=== PATIENT | male | born 1960 | race Caucasian/White ===

== ENCOUNTER 2022-08-06 11:26 | Outpatient (CLI) | payer BC, SELFPAY ==
[2022-08-06 18:12] LABS: Albumin* 4.7 g/dL (3.3-5.0); Chloride* 100 mmol/L (96-114)
[2022-08-06 18:13] LABS: Potassium* 4.5 mmol/L (3.6-5.1); Sodium* 141 mmol/L (135-149)
[2022-08-06 18:15] LABS: Aspartate Amino Transferase* 58 U/L (12-35); Bilirubin Total* 0.9 mg/dL (0.1-1.5); Blood Urea Nitrogen* 16 mg/dL (7-30); Carbon Dioxide* 30 mmol/L (20-32); Cholesterol* 211 mg/dL (90-199); Creatinine* 0.6 mg/dL (0.5-1.5); Estimated Glomerular Filt Rate 109 ml/min; Glucose* 104 mg/dL (60-115); Total Protein* 9.3 g/dL (6.0-8.3)
[2022-08-06 18:16] LABS: Alanine Aminotransferase* 74 U/L (4-50); Alkaline Phosphatase* 99 U/L (40-150); HDL Cholesterol* 72 mg/dL (>=40); LDL Cholesterol Calculated 128 mg/dL (<100); Triglycerides* 55 mg/dL (40-149)
[2022-08-06 18:43] LABS: PSA Screen* 0.65 ng/mL (0.10-4.00)
== END 2022-08-06 11:27 | disposition home or self-care (01) ==
PROVIDERS: PCP Family Medicine; Visit Provider Family Medicine
DX: E78.5 Hyperlipidemia, unspecified (principal); L97.509 Non-pressure chronic ulcer of other part of unspecified foot with unspecified severity; L03.90 Cellulitis, unspecified; R73.01 Impaired fasting glucose; Z12.5 Encounter for screening for malignant neoplasm of prostate
CPT/HCPCS: 80053; 80061; 84153

== ENCOUNTER 2022-08-13 12:57 | Outpatient (CLI) | payer BC, SELFPAY | END 2022-08-13 12:58 | disposition home or self-care (01) | PROVIDERS: PCP Family Medicine; Visit Provider Nurse Practitioner Family | DX: M14.671 Charcot's joint, right ankle and foot (principal); L97.515 Non-pressure chronic ulcer of other part of right foot with muscle involvement without evidence of necrosis; G60.3 Idiopathic progressive neuropathy; B35.1 Tinea unguium; L60.3 Nail dystrophy | CPT/HCPCS: 11043; 11721; 11730; 11732; 87070; 87186; 99213 ==

== ENCOUNTER 2022-08-20 13:56 | Outpatient (CLI) | payer BC, SELFPAY ==
--- NOTE | 2022-08-20 13:00 | CRLHL7_ITS ---
For Patients: As a result of the Cures Act, medical imaging exams and procedure reports are released immediately into your electronic medical record. You may view this report before your referring provider. If you have questions, please contact your health care provider. Indication: Ulcer Technique: views Comparison: None Findings: Soft tissue swelling and complex soft tissue ulcer noted. Ossified densities are located within the dorsal soft tissues which appear to represent bone fragments. Associated destructive changes of the distal tuft are suggested on the oblique view. Mild degenerative changes. Slight flexion deformity at the IP joint. Impression: Extensive cellulitis of the right great toe with multifocal soft tissue ulcers particularly at the dorsal aspect. Multiple osseous fragments are present dorsally and there appears to be destructive changes at the distal tuft suggesting osteomyelitis. Dictated by Rom Foley MD @ 08/21/2022 8:24:48 AM (Electronically Signed)
== END 2022-08-20 13:57 | disposition home or self-care (01) ==
LOC: RAD 13:56
PROVIDERS: PCP Family Medicine; Visit Provider Nurse Practitioner Family
DX: L03.031 Cellulitis of right toe (principal)
CPT/HCPCS: 11043; 73660

== ENCOUNTER 2022-08-27 14:44 | Outpatient (CLI) | payer BC, SELFPAY ==
--- OUTSIDE RECORDS SUMMARY | 2022-08-27 14:45 | XMS_ITS | Clinical Summary ---
:1960 Author Organization [employer] [facility] [employer] [place] [address] Care Team Providers Name Role Phone Nonstaff, Doctor Primary Care Provider Unavailable Allergies Active Allergy Reactions Severity Noted Date Comments Aspirin, Buffered 04/01/2010 Ibuprofen Angioedema 12/13/2018 Patient thinks he possibly had li p swelling to ibu profen when he was you ng so now avoids it. Indomethacin Other - Describe In 08/26/2022 Facial s welling per Comment Field patient - swel ling around lips and eyes Medications Medication Sig Dispensed Refills Start Date End Date Status acetaminophen Take 2 tablets by 0 12/15/2018 Active (TYLENOL) 325 mg mouth every 4 hours tablet if needed (For mild pain.). Max acetaminophen dose: 4000mg in 24 hrs. simvastatin (ZOCOR) 0 08/06/2022 Active 20 mg tablet doxycycline 0 08/21/2022 Active monohydrate (MONODOX) 100 mg capsule acetic acid 0.25% 0 08/25/2022 A ctive 0.25 % irrigation cephalexin (KEFLEX) 0 08/06/2022 Active 500 mg capsule Active Problems Problem Noted Date SVT (supraventricular tachycardia) 12/19/2018 T12 compression fracture 12/13/2018 Back pain 12/13/2018 History of alcohol abuse 12/13/2018 Encounters Date Type Specialty Care Team Description 08/27/2022 Telephone Suman Arvizu Results R, DPM 08/26/2022 Nurse/Clinic Staff Testing ( Pre-procedure Only COVID test) 08/26/2022 Office Visit Suman Arvizu Consult (R ight great toe R DPM osteomyelitis) 08/26/2022 Travel from Last 3 Months Immunizations Name Administration Dates Next Due Influenza, IIV4 12/14/2018 Influenza, IIV4 (=>6mos) MDV 09/12/2014 Tdap 02/09/2014 Family History Medical History Relation Name Comments Diabetes Father Diabetes Maternal Grandmother Relation Name Status Comments Father Maternal Grandmother Social History Tobacco Use Types Packs/Day Years Used Date Never Smoker Smokeless Tobacco: Never Used Alcohol Use Standard Drinks/Week Comments Yes 1 (1 standard drink = 0.6 oz pure alcoho l) 1x per week Alcohol Habits Answer Date Recorded How often do you have a drink containing alcohol? Not asked How many drinks containing alcohol do you have on a Not aske d typical day when you are drinking? How often do you have six or more drinks on one occasion? No t asked Comment: 1x per week 12/14/2018 Sex Assigned at Date Recorded Not on file COVID-19 Exposure Response Date Recorded In the last 10 days, have you been in contact No / Unsure 08/26/2022 10:53 AM CDT with someone who was confirmed or suspected to have Coronavirus/COVID-19? Obstetrics History Last Filed Vital Signs Vital Sign Reading Time Taken Comments Blood Pressure 142/91 08/26/2022 11:[address] ates AM CDT his bp has been elevated since t he infection. Pulse 76 08/26/2022 11:17 AM CDT Temperature 36.6 ??C (97.9 ??F) 12/22/2018 10:39 AM STUDENT SERVICES COUNSELOR Respiratory Rate 16 12/22/2018 10:39 AM STUDENT SERVICES COUNSELOR Oxygen Saturation 98% 08/26/2022 11:17 AM CDT Inhaled Oxygen - - Concentration Weight 85.5 kg (188 lb 9.6 08/26/2022 11:17 oz) AM CDT Height 188 cm (6' 2) 12/22/2018 10:39 AM STUDENT SERVICES COUNSELOR Body Mass Index 24.21 12/22/2018 10:39 AM STUDENT SERVICES COUNSELOR Plan of Treatment Upcoming Encounters Date Type Specialty Care Team Description 08/31/2022 Hospital Encounter Suman Arvizu DPM [address] [place], [place] [address] (Wo rk) 08/31/2022 Surgery Suman Arvizu R, partial AMPUTATION DPM right great TOE [address] [facility], [place] [address] (Wo rk) 09/02/2022 Office Visit Suman Arvizu R, DPM [address] [facility], [place] [address] (Wo rk) 09/16/2022 Office Visit Suman Arvizu R, DPM [address] [facility], [place] [address] (Wo rk) 09/23/2022 Office Visit Suman Arvizu, DPM [address] [facility], [place] [address] (Wo rk) Scheduled Procedures Name Priority Associated Diagnoses Date/Time AMPUTATION TOE Tier 4 Osteomyelitis of great toe of ri ght 08/31/2022 10:27 AM CDT foot (HC) Health Maintenance Due Date Last Done Comments Depression screening for age 12+ 1971 Hepatitis C screening for age 18-79 1977 Colonoscopy through age 75 2004 Lipids for age 45-75 2004 Zoster (shingles) series for age 50+ 2009 (1 of 2) BMI (ht and wt on same day) for age 0212/22/2019 12/22/2018 18+ COVID-19 vaccine series (4 - Booster 12/16/2021 10/21/2021, 04/01/2021, for Moderna series) 03/04/2021 Influenza for age 50-64 07/09/2022 12/14/2018, 09/12/2014 Tetanus booster 02/10/2024 02/09/2014 Tdap Completed 02/09/2014 Procedures Procedure Name Priority Date/Time Associated Comments Diagnosis COVID 19 COLLECTION Routine 08/26/2022 3:32 PM Encounter for R esults for this CDT pre-operative procedure are in laboratory testing the resul ts section. from Last 3 Months Results COVID 19 COLLECTION (08/26/2022 3:32 PM CDT) [facility] gist Method Time Signature TESTING [employer] 08/27/2022 [facility] Laboratory 6:38 AM CDT LABORATORY-[facility] Comment: Specimen submitted to [facility] for testing. Specimen Anatomical Location / Collection Method Collection Froilan e Received Time (Source) Laterality / Volume Other SPECIMEN FROM Non-Blood / 08/26/2022 3:32 08/26/2022 3:43 NASOPHARYNGEAL Unknown PM CDT PM CDT STRUCTURE / Unknown Suman Arvizu DPMaricruz SEND OUTS Performing Organization Address City/State/ZIP Code Phon e Number [facility] [address] [place] [address] LABORATORY-[facility] LABORATORY from Last 3 Months Insurance Payer Benefit Plan / Subscriber ID Effective Dates Phone Addre ss Type Group [employer] [place] [employer] [id number] 2018-Present [address] [address] [place] [address] Advance Directives Latest Code Status on File Code Status Date Activated Date Inactivated Comments Full Code 12/13/2018 7:04 PM 12/19/2018 11:23 PM Care Teams Chief Engineering Division Relationship Specialty Start Date End Date Nonstaff, Doctor PCP - General 12/13/18 NON STAFF DOCTOR
== END 2022-08-27 14:45 | disposition home or self-care (01) ==
LOC: WOUND 14:44
PROVIDERS: PCP Family Medicine; Visit Provider Nurse Practitioner Family
DX: M86.271 Subacute osteomyelitis, right ankle and foot (principal); M14.671 Charcot's joint, right ankle and foot; L97.515 Non-pressure chronic ulcer of other part of right foot with muscle involvement without evidence of necrosis; G60.3 Idiopathic progressive neuropathy; L84 Corns and callosities
CPT/HCPCS: 11055; 99213

== ENCOUNTER 2023-06-23 09:37 | Outpatient (CLI) | payer BC, SELFPAY ==
[2023-06-23 13:50] LABS: Uric Acid* 7.9 mg/dL (2.2-8.4)
== END 2023-06-23 09:38 | disposition home or self-care (01) ==
PROVIDERS: PCP Family Medicine; Visit Provider Family Medicine
DX: M79.671 Pain in right foot (principal); M79.672 Pain in left foot; E78.5 Hyperlipidemia, unspecified
CPT/HCPCS: 80053; 84550; 85025; 86140

== ENCOUNTER 2023-07-09 12:36 | Outpatient (CLI) | payer BC, SELFPAY | END 2023-07-09 12:37 | disposition home or self-care (01) | LOC: AMB 07-12 10:26 | PROVIDERS: PCP Family Medicine; Visit Provider Family Medicine | DX: F10.129 Alcohol abuse with intoxication, unspecified (principal) | CPT/HCPCS: A0425; A0429 ==

== ENCOUNTER 2023-07-09 13:00 | Emergency (ER) | payer BC, SELFPAY ==
[2023-07-09] VITALS (33 sets, daily range): BP systolic 93–138; BP diastolic 68–105; PULSE 83–121; RESP 16–22; TEMP 36.9; O2SAT 91–100; BMI 24.4
[2023-07-09 14:31] LABS: Basophils Percent Auto 1.3 % (0.0-3.0); Eosinophils Percent Auto 1.8 % (0.0-7.0); Hematocrit 37.6 % (37.0-53.0); Hemoglobin* 12.3 gm/dL (13.5-17.5); Immature Granulocytes Pct Auto 1.3 %; Lymphocytes Percent Auto 23.1 % (20-44); Mean Corpuscular HGB Conc 33 gm/dL (32-36); Mean Corpuscular Hemoglobin 32 pg (26-34); Mean Corpuscular Volume 99 fL (80-100); Monocytes Percent Auto 4.5 % (0.0-11.0); Platelet Count* 342 K/uL (140-440); White Blood Count* 4.45 K/uL (4.50-11.00)
[2023-07-09 14:32] LABS: Lactate* 2.2 mmol/L (0.5-1.9)
[2023-07-09 14:34] LABS: Slide Review Reflex No
[2023-07-09 14:52] LABS: Magnesium* 1.8 mg/dL (1.5-2.6)
[2023-07-09] MEDS: 0.9 % SODIUM CHLORIDE 1000 ml 1,000 ML IV (14:54)
[2023-07-09] MEDS: THIAMINE 100 MG TABLET PO (14:54)
[2023-07-09] MEDS: FOLIC ACID 1 MG TABLET PO (14:54)
[2023-07-09 15:04] LABS: Albumin* 4.1 g/dL (3.3-5.0); Chloride* 102 mmol/L (96-114); Potassium* 4.3 mmol/L (3.6-5.1); Sodium* 142 mmol/L (135-149)
[2023-07-09 15:07] LABS: Alkaline Phosphatase* 74 U/L (40-150); Anion Gap 10 mEq/L (7-15); Aspartate Amino Transferase* 22 U/L (12-35); Bilirubin Total* 0.4 mg/dL (0.1-1.5); Blood Urea Nitrogen* 13 mg/dL (7-30); Carbon Dioxide* 30 mmol/L (20-32); Creatinine* 0.7 mg/dL (0.5-1.5); Est. Creatinine Clearance* 87.91; Estimated Glomerular Filt Rate 104 ml/min; Total Protein* 8.2 g/dL (6.0-8.3)
[2023-07-09 15:08] LABS: Alanine Aminotransferase* 24 U/L (4-50); Calcium* 8.9 mg/dL (8.4-10.6); Glucose* 92 mg/dL (60-115)
[2023-07-09 15:16] LABS: C Reactive Protein* < 0.5 mg/dL (0.5-1.0)
[2023-07-09 15:17] LABS: Ethanol* 0.34 % (0.01-0.03)
--- NOTE | 2023-07-09 16:04 | ED_ITS ---
HPI - General Adult General Date Seen: 07/09/23 Chief complaint: Alcohol/Intoxication Stated complaint: Fall Time Seen by Provider: 07/09/23 13:19 History of Present Illness HPI narrative: Pleasant 62-year-old male brought to the ER today by EMS. He has a past medical history that includes alcohol abuse, peripheral neuropathy, hyperlipidemia, and previous osteomyelitis (reports that he had an amputation of the distal phalanges of his right great toe last August), with recent cellulitis of his right index toe. Patient reports that he developed redness and swelling of the right index to a few weeks ago and he was put on at 21 door course of antibiotics. He says that the toe was fairly red and swollen previously but has been getting better over the past few days. He has not had any fevers or chills. A last night he was feeling well. He went to the [employer] for football game with his brothers. He did have a few drinks before the game and a few drinks during the game. He got up this morning. It was the 1st of the month any apparently receives his pension distribution. He apparently went to the local ED [facility] to withdraw some maxwell. He had a couple of drinks, at least 1 bloody Allyson and possibly a beer tracer (or more, unclear). He then decided that he would go play pickleball. He says he knows he should walk or play pickleball because of his right toe, but he wanted do that anyway. He was walking home and apparently walking up a hill when he got dizzy and fell down. He says he thinks it was just ?windy. ? He did not have any chest pain, shortness of breath, palpitations. No headache. No abdominal pain. No nausea or vomiting. A passing pedestrian saw him and called 911. Related Data Home Medications Medication Instructions Recorded Confirmed diphenhydramine HCl 25 mg capsule 25 mg PO QHS PRN 09/30/22 07/09/23 (Benadryl) Previous Rx's Medication Instructions Recorded atorvastatin 20 mg tablet 20 mg PO QPM #90 tabs 08/27/22 peg 3350-electrolytes 236 240 ml PO Q10M #4,000 mL 08/27/22 gram-22.74 gram-6.74 gram-5.86 gram solution (Golytely) levofloxacin 500 mg tablet 500 mg PO QDAY 21 days #21 tabs 08/16/23 Allergies Allergy/AdvReac Type Severity Reaction Status Date / Time aspirin Allergy Intermediate swelling Verified 07/09/23 13:14 indomethacin Allergy Mild Unknown Verified 07/09/23 13:14 [facility] Medical History (Updated 07/09/23 @ 18:36 by Greg Damico MD) Alcohol abuse ?F10.10 - Alcohol abuse, uncomplicated (ICD-10) Bilateral foot pain ?M79.671 - Pain in right foot (ICD-10) ?M79.672 - Pain in left foot (ICD-10) Peripheral neuropathy ?G62.9 - Polyneuropathy, unspecified (ICD-10) Osteomyelitis ?M86.9 - Osteomyelitis, unspecified (ICD-10) Hyperlipidemia ?E78.5 - Hyperlipidemia, unspecified (ICD-10) Seasonal allergic rhinitis ?J30.2 - Other seasonal allergic rhinitis (ICD-10) Hyperkeratosis of sole ?L85.9 - Epidermal thickening, unspecified (ICD-10) Compression fracture of twelfth thoracic vertebra ?S22.080A - Wedge compression fracture of T11-T12 vertebra, initial encounter for closed fracture (ICD-10) Surgical History (Updated 06/27/23 @ 21:52 by Rom Lanza MD) History of amputation of great toe ?Z89.419 - Acquired absence of unspecified great toe (ICD-10) History of right inguinal hernia repair ?Z98.890 - Other specified postprocedural states (ICD-10) ?Z87.19 - Personal history of other diseases of the digestive system (ICD-10) History of umbilical hernia repair ?Z98.890 - Other specified postprocedural states (ICD-10) ?Z87.19 - Personal history of other diseases of the digestive system (ICD-10) Family History (Updated 08/04/22 @ 17:26 by Lori Garcia) Other Diabetes Social History Smoking Status: Never smoker Do you use any of these nicotine containing products: None Second hand tobacco smoke exposure: No How often do you have a drink containing alcohol: 4 or more times a week How many standard drinks containing alcohol do you have on a typical day: 3 or 4 AUDIT-C Alcohol total score: 5 Non-prescribed substance use: denies use Little interest or pleasure in doing things: not at all Feeling down, depressed, or hopeless: not at all service: No Exam Narrative: Exam Narrative: Constitutional: Appears well-developed and well-nourished. Alert. Conversant but slurred speech. Somewhat tangential historian. Speaks as is if he is intoxicated. Overall Non toxic. HENT: Head: Atraumatic. Nose: Nose normal. Mouth/Throat: Oral mucosa is clear and moist. no trismus. Pharynx normal. Tonsils symmetric. No tonsillar enlargement, erythema, or exudate. Eyes: Conjunctivae normal. EOM normal. Pupils equal, round, and reactive to light. No scleral icterus. Neck: Normal range of motion. Neck supple. No tracheal deviation present. Cardiovascular: Normal rate, regular rhythm. No gallop. No friction rub. No murmur heard. Symmetric radial artery pulses Pulmonary/Chest: Effort normal. No stridor. No respiratory distress. No wheezes. No rales. No rhonchi . No tenderness. Abdominal: Soft. Bowel sounds normal. No distension. No mass. No tenderness. No rebound. No guarding. Musculoskeletal: RUE: Normal range of motion. No tenderness. No deformity LUE: Normal range of motion. No tenderness. No deformity RLE: Wearing a walking boot on his right foot. Removed for exam. He is status post amputation of the distal phalange of the great toe. That toe looks good today. No redness or swelling. He does have some erythema of the skin of his 2nd toe on the right foot but no fluctuance, purulent drainage, crepitus. No signs of maceration in the web spaces or gangrene. The size of his index toe is symmetric with his left foot. Other toes are normal. Forefoot, midfoot, hindfoot are normal. Normal range of motion. No edema. No tenderness. No deformity LLE: Normal range of motion. No edema. No tenderness. No deformity Lymph: No cervical adenopathy. Neurological: Alert and oriented to person, place, and time. Normal strength. CN II-VII intact. No acute sensory deficit. He has some chronic numbness and pain in both of his lower extremities from the knee down to the toes because of peripheral neuropathy. GCS eye subscore is 4. GCS verbal subscore is 5. GCS motor subscore is 6. Normal coordination Skin: Skin is warm and dry. No rash noted. No pallor. Normal capillary refill. Psychiatric: Normal mood. Normal affect. Const: Vital Signs, click to edit/add: Vital Signs - 24 hr 07/09/23 13:08 07/09/23 13:34 07/09/23 13:35 Temperature 98.4 F Pulse Rate 119 H 118 H Pulse Rate [Pulse Oximeter] 121 H Respiratory Rate 16 Blood Pressure 93/68 Blood Pressure [Ri ght Upper Arm] 124/89 Pulse Oximetry 91 96 [facility] 07/09/23 14:00 07/09/23 14:02 07/09/23 14:30 Temperature Pulse Rate 117 H 109 H 110 H Pulse Rate [Pulse Oximeter] Respiratory Rate Blood Pressure 122/91 H Blood Pressure [Ri ght Upper Arm] Pulse Oximetry 95 94 [facility] 07/09/23 14:31 07/09/23 14:32 07/09/23 15:00 Temperature Pulse Rate 109 H 108 H 106 H Pulse Rate [Pulse Oximeter] Respiratory Rate Blood Pressure 126/100 H Blood Pressure [Ri ght Upper Arm] Pulse Oximetry 99 97 [facility] 07/09/23 15:01 07/09/23 15:30 07/09/23 15:31 Temperature Pulse Rate 107 H 87 93 Pulse Rate [Pulse Oximeter] Respiratory Rate Blood Pressure 129/93 H 116/83 Blood Pressure [Ri ght Upper Arm] Pulse Oximetry 96 93 [facility] 07/09/23 15:32 07/09/23 16:00 07/09/23 16:01 Temperature Pulse Rate 113 H 93 85 Pulse Rate [Pulse Oximeter] Respiratory Rate Blood Pressure 117/87 Blood Pressure [Ri ght Upper Arm] Pulse Oximetry 97 96 [facility] 07/09/23 16:30 07/09/23 16:31 07/09/23 17:00 Temperature Pulse Rate 93 91 117 H Pulse Rate [Pulse Oximeter] Respiratory Rate 22 Blood Pressure 125/92 H Blood Pressure [Ri ght Upper Arm] Pulse Oximetry 95 96 [facility] 07/09/23 17:01 07/09/23 17:02 07/09/23 17:30 Temperature Pulse Rate 112 H 119 H 94 Pulse Rate [Pulse Oximeter] Respiratory Rate 22 Blood Pressure 138/103 H Blood Pressure [Ri ght Upper Arm] Pulse Oximetry 97 94 96 Oxygen Delivery Me [facility]od 07/09/23 17:31 07/09/23 17:32 07/09/23 18:00 Temperature Pulse Rate 90 89 83 Pulse Rate [Pulse Oximeter] Respiratory Rate 20 Blood Pressure 136/96 H Blood Pressure [Ri ght Upper Arm] Pulse Oximetry 94 94 93 Oxygen Delivery [facility] 07/09/23 18:01 07/09/23 18:30 07/09/23 18:32 Temperature Pulse Rate 98 84 92 Pulse Rate [Pulse Oximeter] Respiratory Rate Blood Pressure 121/88 124/85 Blood Pressure [Ri ght Upper Arm] Pulse Oximetry 94 94 95 Oxygen Delivery [facility] 07/09/23 19:00 07/09/23 19:02 07/09/23 19:03 Temperature Pulse Rate 86 99 98 Pulse Rate [Pulse Oximeter] Respiratory Rate Blood Pressure 134/92 H Blood Pressure [Ri ght Upper Arm] Pulse Oximetry 96 98 98 Oxygen Delivery Me [facility]od Course Course Hospital Course: Recheck-old doing well. Tolerating sips of liquid. Initial lactic acid elevated at 2.2. Recheck-doing well. Completed IV fluid bolus. Repeat lactic down to 2.1. Has had a cup of water. Breath watching TV. Conversant. Still showing signs of intoxication, but speech is less slurred than when he arrived. Discussed the possible alcohol abuse with the patient. He is still somewhat minimizing his pattern of consumption. He is not interested in treatment at this time but would be accepting at least for a list of outpatient resources. Recheck-he was able to contact his brother, Froilan, who will come here to pick him up, possibly around 8:00 p.m. Recheck -830. Brother has arrived. Patient is comfortable discharging home with his brother. Vital Signs Vital signs: Initial Vital Signs Temperature 98.4 F 07/09/23 13:08 Temperature Source Temporal Artery Scan 07/09/23 13:08 Pulse Rate 121 H 07/09/23 13:08 Pulse Rhythm Regular 07/09/23 13:08 Pulse Strength 3+ Normal 07/09/23 13:08 Respiratory Rate 16 07/09/23 13:08 Blood Pressure 124/89 07/09/23 13:08 Blood Pressure Mean 100 07/09/23 13:08 Blood Pressure Position Sitting 07/09/23 13:08 Pulse Oximetry 91 07/09/23 13:08 Oxygen Delivery Method Room Air 07/09/23 13:08 Vital Signs Temperature 98.4 F 07/09/23 13:08 Pulse Rate 121 H 07/09/23 13:08 Respiratory Rate 16 07/09/23 13:08 Blood Pressure 124/89 07/09/23 13:08 Pulse Oximetry 91 07/09/23 13:08 Oxygen Delivery Method Room Air 07/09/23 13:08 Temperature 98.4 F 07/09/23 13:08 Pulse Rate 98 07/09/23 19:03 Respiratory Rate 20 07/09/23 18:00 Blood Pressure 134/92 H 07/09/23 19:02 Pulse Oximetry 98 07/09/23 19:03 Oxygen Delivery Method Room Air 07/09/23 13:08 Medical Decision Making MDM Narrative Medical decision making narrative: This is a pleasant 62-year-old gentleman brought to the ER today by EMS after he was apparently found or seen on the sidewalk to be stumbling and falling over. Initial differential was quite broad including cardiac pathologies such as arrhythmia or syncope, acute coronary syndrome as well as dehydration, possible infection or sepsis, bleeding, among other causes of dizziness. It turns out the patient's dizziness is probably related to alcohol overconsumption and associated dehydration. Is initially when the patient presented to the ER, he was minimizing his alcohol consumption. He said that he had had ?2 drinks? last night of ago for Game and 1 bloody Allyson this morning. Alcohol level was level was 0.34. Later during his ER course, when I confronted him with his alcohol level is on he added that he actually had been drinking heavily prior to the game, drink heavily during the game, and then was drinking until 3 or 4:00 a.m. this morning. He then had more than 1 bloody Allyson at the [place] this morning for he decided to walk home. I asked him if he felt like his drinking was a problem. He was minimizing that. I asked him if he would be interested in treatment he says he is not at that he would at least except information about alcohol treatment resources. It sounds like he has had a bad relationship lately and has been drinking heavier related to that. He indicates that he feels that this was an unusual exception of alcohol consumption due to the [place] ago for again last night. Transaminases are normal. Bilirubin normal. Kidney function normal. Electrolytes well balanced. blood sugar 92. He does have previous history of osteomyelitis affecting his right great toe with previous partial amputation. He has been on antibiotics recently for a cellulitis affecting his right foot. On my exam he does not have any obvious swelling or signs of osteomyelitis in the toe. He was initially mildly red but after he has been here in the ER even that redness has subsided and his toes symmetric. He presented with sinus tachycardia. Stable blood pressure. We did lab workup to look for possible infection. White blood cell count and differential are reassuring. CRP normal. Lactic acid was initially minimally elevated at 2.2. It is improved to 2.1 after a L of IV fluids. Correspondingly heart rate has come down from 115 down to 100-105. He is tolerating p.o. liquid and will continue to rehydrate orally. I suspect that the elevated lactic acid was likely due to dehydration, not due to infection/sepsis. Lab Data Labs: Lab Results 07/09/23 07/09/23 07/09/23 Range/Units 14:22 16:10 16:23 WBC 4.45 L (4.50-11.00) K/uL RBC 3.80 L (4.30-5.90) m/uL Hgb 12.3 L (13.5-17.5) gm/dL Hct 37.6 (37.0-53.0) % MCV 99 (80-100) fL MCH 32 (26-34) pg MCHC 33 (32-36) gm/dL RDW Coeff of Guerita 13.0 (11.5-15.5) % Plt Count 342 (140-440) K/uL Neut % (Auto) 68.0 (42.0-72.0) % Lymph % (Auto) 23.1 (20-44) % [place] % (Auto) 4.5 (0.0-11.0) % Eos % (Auto) 1.8 (0.0-7.0) % Baso % (Auto) 1.3 (0.0-3.0) % Neut # (Auto) 3.00 (1.7-7.0) K/uL Lymph # (Auto) 1.00 (0.90-2.90) K/uL [place] # (Auto) 0.20 (0.00-0.90) K/UL Eos # (Auto) 0.10 (0.00-0.50) K/uL Baso # (Auto) 0.10 (0.00-0.30) K/uL Abs Immat Gran (auto) 0.10 (0.00-0.30) K/uL Imm/Tot Granulo (auto) 1.3 % Sodium 142 (135-149) mmol/L Potassium 4.3 (3.6-5.1) mmol/L Chloride 102 (96-114) mmol/L Carbon Dioxide 30 (20-32) mmol/L Anion Gap 10 (7-15) mEq/L BUN 13 (7-30) mg/dL Creatinine 0.7 (0.5-1.5) mg/dL Estimated Creat Clear 87.91 Estimated GFR 104 ml/min Glucose 92 (60-115) mg/dL Lactate 2.2 H 2.1 H (0.5-1.9) mmol/L Calcium 8.9 (8.4-10.6) mg/dL Magnesium 1.8 (1.5-2.6) mg/dL Total Bilirubin 0.4 (0.1-1.5) mg/dL AST 22 (12-35) U/L ALT 24 (4-50) U/L Alkaline Phosphatase 74 (40-150) U/L C-Reactive Protein < 0.5 L (0.5-1.0) mg/dL Total Protein 8.2 (6.0-8.3) g/dL Albumin 4.1 (3.3-5.0) g/dL Urine Opiates Screen POSITIVE A (Negative) Ur Oxycodone Screen Negative (Negative) Urine Methadone Screen Negative (Negative) Ur Propoxyphene Screen Negative (Negative) Ur Barbiturates Screen Negative (Negative) U Tricyclic Antidepress Negative (Negative) Ur Phencyclidine Scrn Negative (Negative) Ur Amphetamines Screen Negative (Negative) U Methamphetamines Scrn Negative (Negative) U Benzodiazepines Scrn Negative (Negative) Urine Cocaine Screen Negative (Negative) U Marijuana (THC) Screen Negative (Negative) Ur Drug Screen Comment See Note Ethyl Alcohol 0.34 H* (0.01-0.03) % ECG Data Attestation: I personally reviewed and interpreted this ECG as follows: Interpretation: Sinus tachycardia. Rate 104. Old first-degree AV block. [place] 240 QRS axis normal axis. No pathologic Q-waves. Possible incomplete right bundle- branch block. ST segment/T wave: No acute ST segment elevation or depression. QTc: 457 Discharge Plan Discharge Clinical Impression: Alcoholic intoxication, Dehydration Patient Disposition: Home, Self-Care Condition: Stable Instructions: Alcohol Intoxication (DC), Alcohol Use Disorder (ED) Additional Instructions: Please cut back or abstain from alcohol. Follow-up with your regular doctor for recheck within 4-5 days. If you have any concerns please come back to the ER right away. If you developed any concern for alcohol withdrawal; such as tremors, shakiness, anxiety, nausea and vomiting, or other symptoms of withdrawal, please return to the ER right away Prescriptions: No Action atorvastatin 20 mg tablet 20 mg PO QPM Qty: 90 3RF peg 3350-electrolytes [Golytely] 236-22.74-6.74 -5.86 gram recon soln 240 ml PO Q10M Qty: 4000 0RF Rx Instructions: until fecal effluent is clear diphenhydramine HCl [Benadryl] 25 mg capsule 25 mg PO QHS PRN levofloxacin 500 mg tablet 500 mg PO QDAY 21 Days Qty: 21 0RF Follow Up/Referrals: Teddy Parry MD [Primary Care Provider] - Stand Alone Forms: [employer] Info Instructions
[2023-07-09 16:24] LABS: Lactate* 2.1 mmol/L (0.5-1.9)
[2023-07-09 16:40] LABS: Amphetamine Screen Urine Negative (Negative); Barbiturate Screen Urine Negative (Negative); Benzodiazepines Screen Urine Negative (Negative); Cannabinoid Screen Urine Negative (Negative); Cocaine Screen Urine Negative (Negative); Methadone Screen Urine Negative (Negative); Methamphetamines Screen Urine Negative (Negative); Opiate Screen Urine POSITIVE (Negative); Oxycodone Screen Urine Negative (Negative); Phencyclidine Screen Urine Negative (Negative); Tricyclic Antidepressant Urine Negative (Negative)
--- NOTE | 2023-07-09 17:16 | ED.NURSE ---
Pt given a phone with contact numbers to find a ride home.
--- NOTE | 2023-07-09 17:28 | ED.NURSE ---
Pt called his brother, brother is on his way to come pick him up from the hospital.
--- NOTE | 2023-07-09 19:31 | ED.NURSE ---
Pt IV taken out of left AC.
--- NOTE | 2023-07-09 19:33 | ED.NURSE ---
pt report given off to next RN.
--- NOTE | 2023-07-09 20:34 | PC.NURSE ---
patient DC with brother as CLARITA wilson instructions given to patient, substance abuse resources packet given to patient. no further questions from patient or brother
== END 2023-07-09 20:32 | disposition home or self-care (01) ==
PROVIDERS: Emergency Provider Emergency Medicine; PCP Family Medicine
DX: F10.129 Alcohol abuse with intoxication, unspecified (principal); E86.0 Dehydration
CPT/HCPCS: 36415; 80053; 80306; 82077; 83605; 83735; 85025; 86140; 93005; 99283; 99284; A9270; J7030

== ENCOUNTER 2023-10-20 09:53 | Outpatient (CLI) | payer BC, SELFPAY ==
--- NOTE | 2023-10-20 10:15 | CRLHL7_ITS ---
For Patients: As a result of the Century Cures Act, medical imaging exams and procedure reports are released immediately into your electronic medical record. You may view this report before your referring provider. If you have questions, please contact your health care provider. Indication: Left 2nd toe redness, order, pain. History of osteomyelitis and contralateral right foot. Technique: Multiplanar multisequence MRI of the left foot without contrast Comparison: Radiographs 06/23/2023 Findings: There is edema throughout the 2nd distal phalanx and there is osteolysis of the tuft of the distal phalanx. T1 signal at the remaining base of the distal phalanx is mildly diminished. Finding consistent with osteomyelitis. No significant DIP joint effusion is present. There is edema of the adjacent soft tissues. The remaining bones of the forefoot demonstrate normal signal intensity. There is no joint effusion The included flexor and extensor tendons are intact Impression: Osteomyelitis of the 2nd distal phalanx. Dictated by Kale Peters MD @ 10/21/2023 7:37:15 AM (Electronically Signed)
== END 2023-10-20 09:54 | disposition home or self-care (01) ==
LOC: MRI 09:54
PROVIDERS: PCP Family Medicine; Visit Provider Family Medicine
DX: L08.9 Local infection of the skin and subcutaneous tissue, unspecified (principal); M86.8X7 Other osteomyelitis, ankle and foot
CPT/HCPCS: 73718

== ENCOUNTER 2023-12-27 06:06 | Day surgery (SDC) | payer BC, SELFPAY ==
--- OUTSIDE RECORDS SUMMARY | 2023-12-27 06:10 | XMS_ITS | Clinical Summary ---
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 Indomethacin Other - Describe In Comment Field 08/26/2022 Facial swelling per patient - swelling around lips and eyes Medications Medication Sig Dispensed Refills Start Date End Date Status acetaminophen (TYLENOL) 325 mg tablet Take 2 tablets by mouth every 4 hours if needed (For mild pain.). Max acetaminophen dose: 4000mg in 24 hrs. 0 12/15/2018 Active acetic acid 0.25% 0.25 % irrigation 0 08/25/2022 Active simvastatin (ZOCOR) 20 mg tablet 0 08/06/2022 12/24/2023 Discontinue d(*Patient states no longer taking) atorvastatin (LIPITOR) 20 mg tablet 0 08/27/2022 12/24/2023 Discontinue d(*Patient states no longer taking) levoFLOXacin (LEVAQUIN) 500 mg tablet 0 10/07/2023 12/24/2023 Discontinue d(*Patient states no longer taking) Active Problems Problem Noted Date Diagnosed Date SVT (supraventricular tachycardia) 12/19/2018 T12 compression fracture 12/13/2018 Back pain 12/13/2018 History of alcohol abuse 12/13/2018 Encounters Date Type Department Care Team Description 12/24/2023 12:35 PM CARDIOLOGIST Preop Visit [facility] [address] [place] [address] Brian Freedman MD Preoperative Exam (Surgery date 12/27/2023 /) 12/24/2023 Travel 12/22/2023 10:30 AM CARDIOLOGIST Office Visit [facility] [address] [facility] [address] Suman Arvizu DPM Ulcer (Follow up-bilateral 2nd toe ulcers) 12/22/2023 Travel 10/13/2023 2:30 PM CARDIOLOGIST Office Visit [facility] [address] [place] [address] Suman Arvizu DPM Follow Up (Bilateral 2nd toe ulcers) 10/13/2023 Travel from Last 3 Months Immunizations Name Administration Dates Next Due Influenza, IIV4 09/14/2023,07/17/2021,12/14/2018 Influenza, IIV4 (=>6mos) MDV 09/12/2014 Tdap 02/09/2014 Zoster (Shingrix-RZV, recombinant) 10/11/2023 Family History Medical History Relation Name Comments Diabetes Father Diabetes Maternal Grandmother Relation Name Status Comments Father Maternal Grandmother Social History Tobacco Use Types Packs/Day Years Used Date Smoking Tobacco: Never Smokeless Tobacco: Never Tobacco Cessation:Counseling Given: Yes Alcohol Use Standard Drinks/Week Comments Yes 1 (1 standard drink = 0.6 oz pur e alcohol) 3-4 cans per week Social Connections Answer Date Recorded Frequency of Communication with Friends and Fami ly Not on file 12/24/2023 Sex and Gender Information Value Date Recorded Sex Assigned at Not on file Gender Identity Not on file Sexual Orientation Not on file Obstetrics History Last Filed Vital Signs Vital Sign Reading Time Taken Comments Blood Pressure 110/69 12/24/2023 12:49 PM CARDIOLOGIST Pulse 73 12/24/2023 12:49 PM CARDIOLOGIST Temperature 36.7 ??C (98.1 ??F) 09/02/2022 10:14 AM C DT Respiratory Rate 14 08/31/2022 10:10 AM CDT Oxygen Saturation 99% 12/24/2023 12:49 PM CARDIOLOGIST Inhaled Oxygen Concentration - - Weight 94.2 kg (207 lb 9.6 oz) 12/24/2023 12:49 PM CARDIOLOGIST Height 182.9 cm (6') 12/24/2023 12:49 PM CARDIOLOGIST Body Mass Index 28.16 12/24/2023 12:49 PM CARDIOLOGIST Plan of Treatment Upcoming Encounters Date Type Department Care Team (Late st Contact Info) Description 12/27/2023 11:00 AM CARDIOLOGIST Office Visit [facility] at [address] [id number] Suman Arvizu DPM [address] [place] [address] 12/29/2023 1:00 PM CARDIOLOGIST Office Visit [facility] [address] [place] [address] Suman Arvizu DPM [address] [place] [address] 01/12/2024 1:45 PM CARDIOLOGIST Office Visit [facility] [address] [place] [address] Suman Arvizu DPM [address] [place] [address] 02/09/2024 10:30 AM CDT Office Visit [facility] [address] [place] [address] Suman Arvizu DPM [address] [place] [address] Health Maintenance Due Date Last Done Comments Depression screening for age 12+ 1971 HIV for age 15-65 1974 Hepatitis C screening for age 18-79 1977 Colonoscopy through age 75 2004 Lipids for age 45-75 2004 Zoster (shingles) series for age 50+ (2 of 2) 12/06/2023 10/11/2023 Tetanus booster 02/10/2024 02/09/2014 BMI (ht and wt on same day) for age 18+ 12/24/2024 12/24/2023, 12/22/2018 Tdap Completed 02/09/2014 Influenza for age 50-64 Completed 09/14/20, 07/17/2021, 12/14/2018, Additional history exists COVID-19 vaccine series Completed 10/11/20, 10/21/2021, 04/01/2021, Additional history exists Pneumococcal series for age 6-64 Aged Out No longer eligible based on patient's age to complete this topic Advance Directives Latest Code Status on File Code Status Date Activated Date Inactivated Comments Full Code 08/31/2022 8:37 AM 08/31/2022 1:03 PM Question Answer Comments Code Status Discussion: Reviewed Preferences Code Status History Code Status Date Activated Date Inactivated Comments Full Code 12/13/2018 7:04 PM 12/19/2018 11:23 PM Care Teams Pin Ticket Machine Operator Relationship Specialty Start Date End Date Nonstaff, Doctor NON STAFF DOCTOR PCP - General 12/13/18
[2023-12-27 06:18] VITALS: BMI 28.1
[2023-12-27 06:38] VITALS: BP 148/97; PULSE 82; RESP 16; TEMP 37.1; O2SAT 97
[2023-12-27] MEDS: SODIUM CHLORIDE 0.9 % (FLUSH) 10 ML SYRINGE IVF (06:39)
[2023-12-27] MEDS: LACTATED RINGERS 1000 ML 1,000 ML 100 ML IV (06:39)
[2023-12-27] MEDS: BUPIVACAINE 0.5% 30 ML INJECTION (07:25)
[2023-12-27] MEDS: CEFAZOLIN 2 GM INJ IVP (07:25)
[2023-12-27 08:15] VITALS: BP 104/69; PULSE 105; RESP 16; TEMP 36.2; O2SAT 94
--- NOTE | 2023-12-27 08:18 | W.ANESCHARGE ---
Anesthesia Charges Start Date/Time Anesthesia Start Date: 12/27/23 Anesthesia Start Time: 07:14 Stop Date/Time Anesthesia Stop Date: 12/27/23 Anesthesia Stop Time: 08:15
[2023-12-27 08:32] VITALS: BP 122/98; PULSE 61; RESP 16; O2SAT 94
[2023-12-27 08:45] VITALS: BP 139/89; PULSE 62; RESP 16; O2SAT 94
--- NOTE | 2023-12-27 13:59 | PM.GSPRC ---
Operative Note Date of procedure: 12/27/23 Pre-op diagnosis: 1. Osteomyelitis 2nd toe distal phalanx left foot 2. Hammertoe deformity 2nd digit left foot 3. Hammertoe deformity 2nd digit right Post-op diagnosis: 1. Osteomyelitis 2nd toe distal phalanx left 2. Hammertoe deformity 2nd digit left foot 3. Hammertoe deformity 2nd digit right foot Type of Procedure: 1. Partial amputation 2nd toe left foot 2. Partial amputation 2nd toe right foot Indications: Patient recently had MRI showing osteomyelitis 2nd toe distal phalanx left foot. 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 I discussed surgical intervention and he is ready to move forward with partial amputation of bilateral 2nd toes. I reviewed the procedure, recovery, expectation potential complications. These include but are not limited to: Poor wound healing, continued infection, potentially future surgery, deep venous thrombosis, pulmonary embolism and possible . He understands risks written consent was obtained. Site marked. Procedure Description: After discussing the risks and benefits of the procedure, the patient signed informed consent.? The operative site was marked and the patient was brought to the operating room and placed on the operating table in supine position.? Care was taken to pad the patient's pressure points.?? The patient was then given sedation by anesthesia.?? Local anesthetic injected into bilateral 2nd toes. The operative site was then prepped and draped in the usual sterile fashion.? A time-out was then performed. Distal fishmouth incision was made incorporating the entire nail plate 2nd toe left foot. Incision was taken directly to bone. Distal phalanx was disarticulated at the IPJ and removed in total. Wound was thoroughly irrigated normal sterile saline. Cartilage was removed from the middle phalanx head. Tourniquet was released and all bleeding vessels cauterized. Incision was closed with 3-0 nylon. Distal fishmouth incision was made incorporating the entire nail plate 2nd toe right foot. Incision was taken directly to bone. Distal phalanx was disarticulated at the IPJ and removed in total. Wound was thoroughly irrigated normal sterile saline. Cartilage was removed from the middle phalanx head. Tourniquet was released and all bleeding vessels cauterized. Incision was closed with 3-0 nylon. Sterile dressings were then applied. The patient was then woken and transported to the recovery area in stable condition. The patient tolerated the procedure well. We discharged Anesthesia. He is given both written and verbal postop instructions. He is given oxycodone for pain. He is weight-bearing as tolerated. Follow up in clinic in 2 days. Findings: Complications: None apparent Hemostasis: Ankle tourniquet 250 mm Hg Implants: None Anesthesia: MAC and local Surgeon: Suman Arvizu DPM Estimated blood loss (mL): 2 Specimen: Other Additional Specimen Information: Bilateral distal phalanx sent to pathology. Condition: stable Disposition: same day
== END 2023-12-27 09:15 | disposition home or self-care (01) ==
PROVIDERS: PCP Family Medicine; Visit Provider Podiatrist
PROC: (CPT 28825; principal; 2023-12-27 07:15)
DX: M86.8X7 Other osteomyelitis, ankle and foot (principal); M20.42 Other hammer toe(s) (acquired), left foot; M20.41 Other hammer toe(s) (acquired), right foot
CPT/HCPCS: 28825 ×2; 01480; 88305; 88311; J0665; J0690; J1100; J2250; J2405; J2704; J3010; J7120

== ENCOUNTER 2024-07-19 15:09 | Outpatient (CLI) | payer BC, SELFPAY ==
--- OUTSIDE RECORDS SUMMARY | 2024-07-21 07:35 | XMS_ITS | Clinical Summary ---
Author Organization [employer] [facility] Address [place], [place] [address] Care Team Providers Care Java Software Architect Name Role Phone Nonstaff, Doctor Primary Care [...] SQUARED TOE POST OP SHOE, LARGE, REF: [phone] 2 Each 12/29/2023 Active doxycycline (ADOXA) 100 [...] Comments Blood Pressure 110/69 12/24/2023 12:49 PM DAIRY SCIENTIST Pulse 110 01/19/2024 2:01 PM CDT Temperature 36.9 ??C (98.4 ??F) 01/19/2024 2:01 PM CD T Respiratory Rate 14 08/31/2022 10:10 AM CDT Oxygen Saturation 93% 01/19/2024 2:01 PM CDT Inhaled Oxygen Concentration - - Weight 94.2 kg (207 lb 9.6 oz) 12/24/2023 12:49 PM DAIRY SCIENTIST Height 182.9 cm (6') 12/24/2023 12:49 PM DAIRY SCIENTIST Body Mass Index 28.16 12/24/2023 12:49 PM DAIRY SCIENTIST Plan of Treatment Health Maintenance Due Date [...] 7:04 PM 12/19/2018 11:23 PM Care Teams Java Software Architect Relationship Specialty Start Date End Date Nonstaff, Doctor NON STAFF DOCTOR PCP - General 12/13/18
== END 2024-07-19 15:10 | disposition home or self-care (01) ==
LOC: AMB 07-21 07:31
PROVIDERS: PCP Family Medicine; Visit Provider Family Medicine
DX: F10.129 Alcohol abuse with intoxication, unspecified (principal)
CPT/HCPCS: A0425; A0427

== ENCOUNTER 2024-07-19 15:37 | Emergency (ER) | payer BC, SELFPAY ==
[2024-07-19] VITALS (11 sets, daily range): BP systolic 95–128; BP diastolic 60–80; PULSE 63–82; RESP 16–20; TEMP 36.8; O2SAT 76–99; BMI 25.7
[2024-07-19 16:32] LABS: Eosinophils Percent Auto 2.5 % (0.0-7.0); Hematocrit 34.4 % (37.0-53.0); Hemoglobin* 11.2 gm/dL (13.5-17.5); Immature Granulocytes Pct Auto 0.5 %; Lymphocytes Percent Auto 31.2 % (20-44); Mean Corpuscular HGB Conc 33 gm/dL (32-36); Mean Corpuscular Hemoglobin 34 pg (26-34); Mean Corpuscular Volume 106 fL (80-100); Monocytes Percent Auto 9.9 % (0.0-11.0); Neutrophils Percent Auto 54.9 % (42.0-72.0); Platelet Count* 137 K/uL (140-440); Red Blood Count 3.26 m/uL (4.30-5.90); White Blood Count* 2.02 K/uL (4.50-11.00)
--- NOTE | 2024-07-19 16:35 | ED.GENADULT ---
HPI - General Adult General Date Seen: 07/19/24 <Joaquin Heaton DO - Last Filed: 07/20/24 00:54> Chief complaint: Alcohol/Intoxication <Joaquin Heaton DO - Last Filed: 07/20/24 00:54> Stated complaint: ETOH <Joaquinporfirio Heaton DO - Last Filed: 07/20/24 00:54> Time Seen by Provider: 07/19/24 16:00 <Joaquin Heaton DO - Last Filed: 07/20/24 00:54> Source: patient <Joaquin Heaton DO - Last Filed: 07/20/24 00:54> Mode of arrival: EMS <Joaquin Heaton DO - Last Filed: 07/20/24 00:54> Limitations: no limitations <Joaquin P Sudarshan DO - Last Filed: 07/20/24 00:54> History of Present Illness HPI narrative: Patient is a 63-year-old male presenting to the emergency department for a couple intoxication. Patient was at his apartment complex in the [facility] when PD were called. At that time he blew a 0.3-1 their breathalyzer. EMS was called he was brought to the emergency department. EMS states his vitals have been stable. He is not on a hold. He denies any pain anywhere just states he feels dehydrated and tired. Denies fevers, chills, chest pain, abdominal pain, shortness of breath, lightheadedness, dizziness, headache, vision changes. No other concerns noted. Denies any other drug use. States he drank yesterday and today and says he usually drinks a few times a week. Is not sure how much he drank. Denies suicidal or homicidal thoughts at this time. <Joaquin Heaton DO - Last Filed: 07/20/24 00:54> Related Data Home medications: Previous Rx's ?Medication ?Instructions ?Recorded atorvastatin 20 mg tablet 20 mg PO QPM #90 tabs 08/27/22 peg 3350-electrolytes 236 240 ml PO Q10M #4,000 mL 08/27/22 gram-22.74 gram-6.74 gram-5.86 gram solution (Golytely) <Joaquin Heaton DO - Last Filed: 07/20/24 00:54> Allergies/adverse reactions: Allergies Allergy/AdvReac Type Severity Reaction Status Date / Time aspirin Allergy Intermediate swelling Verified 07/19/24 15:56 indomethacin Allergy Mild Unknown Verified 07/19/24 15:56 ibuprofen Allergy Verified 07/19/24 15:56 <Joaqiun Heaton DO - Last Filed: 07/20/24 00:54> Review of Systems Status of ROS: Reports: 10 or more systems reviewed and unremarkable except as noted in History and below <Joaquin Heaton DO - Last Filed: 07/20/24 00:54> [facility] Medical History: Medical History Osteomyelitis ?M86.9 - Osteomyelitis, unspecified (ICD-10) Alcohol abuse ?F10.10 - Alcohol abuse, uncomplicated (ICD-10) Bilateral foot pain ?M79.671 - Pain in right foot (ICD-10) ?M79.672 - Pain in left foot (ICD-10) Peripheral neuropathy ?G62.9 - Polyneuropathy, unspecified (ICD-10) Hyperlipidemia ?E78.5 - Hyperlipidemia, unspecified (ICD-10) Seasonal allergic rhinitis ?J30.2 - Other seasonal allergic rhinitis (ICD-10) Hyperkeratosis of sole ?L85.9 - Epidermal thickening, unspecified (ICD-10) Compression fracture of twelfth thoracic vertebra ?S22.080A - Wedge compression fracture of T11-T12 vertebra, initial encounter for closed fracture (ICD-10) <Joaquin Heaton DO - Last Filed: 07/20/24 00:54> Surgical History: Surgical History History of amputation of great toe ?Z89.419 - Acquired absence of unspecified great toe (ICD-10) History of right inguinal hernia repair ?Z98.890 - Other specified postprocedural states (ICD-10) ?Z87.19 - Personal history of other diseases of the digestive system (ICD-10) History of umbilical hernia repair ?Z98.890 - Other specified postprocedural states (ICD-10) ?Z87.19 - Personal history of other diseases of the digestive system (ICD-10) <Joaquin Heaton DO - Last Filed: 07/20/24 00:54> Family History: Family History Other Diabetes <Joaquin Heaton DO - Last Filed: 07/20/24 00:54> Social History: Social History Smoking Status: Never smoker Do you use any of these nicotine containing products: None Second hand tobacco smoke exposure: No How often do you have a drink containing alcohol: 2-3 times a week How many standard drinks containing alcohol do you have on a typical day: 3 or 4 How often do you have six or more drinks on one occasion: Never AUDIT-C Alcohol total score: 4 Non-prescribed substance use: denies use Little interest or pleasure in doing things: several days Feeling down, depressed, or hopeless: several days service: No <Joaquin Heaton DO - Last Filed: 07/20/24 00:54> Exam Narrative: Exam Narrative: Const: Well-nourished, Well-developed, in mild distress Eyes: PERRL, no conjunctival injection, and symmetrical lids HENT: Atraumatic external nose and ears. Moist mucous membranes. Neck: Symmetric, trachea midline, No thyromegaly. CVS: RRR, No murmurs or gallops. Peripheral pulses 2+ and equal in all extremities RESP: Unlabored respiratory effort. Clear to auscultation bilaterally. GI: Nontender/Nondistended, No rebound or guarding. MSK:Extremities w/o deformity, Normal Active ROM Skin: Warm, Dry. No rashes or lesions. Neuro: Normal Muscle tone, No focal neurological deficits. Psych: Awake, Alert, & Oriented x3. Appropriate mood and affect. <Joaquin Heaton DO - Last Filed: 07/20/24 00:54> Const: Vital Signs, click to edit/add: Vital Signs - 24 hr 07/19/24 15:51 07/19/24 16:02 07/19/24 16:03 Temperature 98.2 F Pulse Rate Pulse Rate [Pulse Oximeter] 82 Respiratory Rate 16 Blood Pressure Blood Pressure [Ri ght Upper Arm] 95/61 Pulse Oximetry 86 L 86 L 86 L Oxygen Delivery Me thod Room Air Nasal Cannula Oxygen Flow Rate 2 07/19/24 18:05 07/19/24 19:05 07/19/24 20:00 Temperature 98.2 F Pulse Rate Pulse Rate [Pulse Oximeter] 69 70 63 Respiratory Rate 16 16 Blood Pressure Blood Pressure [Ri ght Upper Arm] 128/80 95/61 105/66 Pulse Oximetry 98 99 92 Oxygen Delivery Me thod Room Air Nasal Cannula Room Air Oxygen Flow Rate 1 07/19/24 21:15 07/19/24 21:20 07/19/24 21:59 Temperature Pulse Rate 68 Pulse Rate [Pulse Oximeter] 68 Respiratory Rate 20 Blood Pressure 110/64 Blood Pressure [Ri ght Upper Arm] 95/61 Pulse Oximetry 76 L 99 92 Oxygen Delivery Me thod Room Air Nasal Cannula Oxygen Flow Rate 1 07/19/24 22:02 07/19/24 23:02 07/20/24 00:02 Temperature Pulse Rate 68 70 60 Pulse Rate [Pulse Oximeter] Respiratory Rate 20 20 20 Blood Pressure 96/60 105/60 118/80 Blood Pressure [Ri ght Upper Arm] Pulse Oximetry 93 91 91 Oxygen Delivery Me thod Oxygen Flow Rate 07/20/24 01:01 07/20/24 02:02 07/20/24 03:02 Temperature Pulse Rate 62 68 67 Pulse Rate [Pulse Oximeter] Respiratory Rate 20 20 20 Blood Pressure 142/96 H 127/79 122/70 Blood Pressure [Ri ght Upper Arm] Pulse Oximetry 93 98 100 Oxygen Delivery Me thod Oxygen Flow Rate 07/20/24 04:02 07/20/24 05:02 07/20/24 06:02 Temperature Pulse Rate 69 69 73 Pulse Rate [Pulse Oximeter] Respiratory Rate 20 20 20 Blood Pressure 126/72 141/85 H 146/86 H Blood Pressure [Ri ght Upper Arm] Pulse Oximetry 98 99 99 Oxygen Delivery Me thod Oxygen Flow Rate 07/20/24 07:02 07/20/24 08:00 07/20/24 08:02 Temperature Pulse Rate 91 Pulse Rate [Pulse Oximeter] 63 Respiratory Rate 20 16 Blood Pressure 152/95 H Blood Pressure [Ri ght Upper Arm] 127/64 Pulse Oximetry 98 98 97 Oxygen Delivery Me thod Oxygen Flow Rate <Joaquin Heaton, DO - Last Filed: 07/20/24 00:54> Vital Signs, click to edit/add: Vital Signs - 24 hr 07/19/24 15:51 07/19/24 16:02 07/19/24 16:03 Temperature 98.2 F Pulse Rate Pulse Rate [Pulse Oximeter] 82 Respiratory Rate 16 Blood Pressure Blood Pressure [Ri ght Upper Arm] 95/61 Pulse Oximetry 86 L 86 L 86 L Oxygen Delivery Me thod Room Air Nasal Cannula Oxygen Flow Rate 2 07/19/24 18:05 07/19/24 19:05 07/19/24 20:00 Temperature 98.2 F Pulse Rate Pulse Rate [Pulse Oximeter] 69 70 63 Respiratory Rate 16 16 Blood Pressure Blood Pressure [Ri ght Upper Arm] 128/80 95/61 105/66 Pulse Oximetry 98 99 92 Oxygen Delivery Me thod Room Air Nasal Cannula Room Air Oxygen Flow Rate 1 07/19/24 21:15 07/19/24 21:20 07/19/24 21:59 Temperature Pulse Rate 68 Pulse Rate [Pulse Oximeter] 68 Respiratory Rate 20 Blood Pressure 110/64 Blood Pressure [Ri ght Upper Arm] 95/61 Pulse Oximetry 76 L 99 92 Oxygen Delivery Me thod Room Air Nasal Cannula Oxygen Flow Rate 1 07/19/24 22:02 07/19/24 23:02 07/20/24 00:02 Temperature Pulse Rate 68 70 60 Pulse Rate [Pulse Oximeter] Respiratory Rate 20 20 20 Blood Pressure 96/60 105/60 118/80 Blood Pressure [Ri ght Upper Arm] Pulse Oximetry 93 91 91 Oxygen Delivery Me thod Oxygen Flow Rate 07/20/24 01:01 07/20/24 02:02 07/20/24 03:02 Temperature Pulse Rate 62 68 67 Pulse Rate [Pulse Oximeter] Respiratory Rate 20 20 20 Blood Pressure 142/96 H 127/79 122/70 Blood Pressure [Ri ght Upper Arm] Pulse Oximetry 93 98 100 Oxygen Delivery Me thod Oxygen Flow Rate 07/20/24 04:02 07/20/24 05:02 07/20/24 06:02 Temperature Pulse Rate 69 69 73 Pulse Rate [Pulse Oximeter] Respiratory Rate 20 20 20 Blood Pressure 126/72 141/85 H 146/86 H Blood Pressure [Ri ght Upper Arm] Pulse Oximetry 98 99 99 Oxygen Delivery Me thod Oxygen Flow Rate 07/20/24 07:02 07/20/24 08:00 07/20/24 08:02 Temperature Pulse Rate 91 Pulse Rate [Pulse Oximeter] 63 Respiratory Rate 20 16 Blood Pressure 152/95 H Blood Pressure [Ri ght Upper Arm] 127/64 Pulse Oximetry 98 98 97 Oxygen Delivery Me thod Oxygen Flow Rate <Rom Lanza MD - Last Filed: 07/20/24 05:15> Vital Signs, click to edit/add: Vital Signs - 24 hr 07/19/24 15:51 07/19/24 16:02 07/19/24 16:03 Temperature 98.2 F Pulse Rate Pulse Rate [Pulse Oximeter] 82 Respiratory Rate 16 Blood Pressure Blood Pressure [Ri ght Upper Arm] 95/61 Pulse Oximetry 86 L 86 L 86 L Oxygen Delivery Me thod Room Air Nasal Cannula Oxygen Flow Rate 2 07/19/24 18:05 07/19/24 19:05 07/19/24 20:00 Temperature 98.2 F Pulse Rate Pulse Rate [Pulse Oximeter] 69 70 63 Respiratory Rate 16 16 Blood Pressure Blood Pressure [Ri ght Upper Arm] 128/80 95/61 105/66 Pulse Oximetry 98 99 92 Oxygen Delivery Me thod Room Air Nasal Cannula Room Air Oxygen Flow Rate 1 07/19/24 21:15 07/19/24 21:20 07/19/24 21:59 Temperature Pulse Rate 68 Pulse Rate [Pulse Oximeter] 68 Respiratory Rate 20 Blood Pressure 110/64 Blood Pressure [Ri ght Upper Arm] 95/61 Pulse Oximetry 76 L 99 92 Oxygen Delivery Me thod Room Air Nasal Cannula Oxygen Flow Rate 1 07/19/24 22:02 07/19/24 23:02 07/20/24 00:02 Temperature Pulse Rate 68 70 60 Pulse Rate [Pulse Oximeter] Respiratory Rate 20 20 20 Blood Pressure 96/60 105/60 118/80 Blood Pressure [Ri ght Upper Arm] Pulse Oximetry 93 91 91 Oxygen Delivery Me thod Oxygen Flow Rate 07/20/24 01:01 07/20/24 02:02 07/20/24 03:02 Temperature Pulse Rate 62 68 67 Pulse Rate [Pulse Oximeter] Respiratory Rate 20 20 20 Blood Pressure 142/96 H 127/79 122/70 Blood Pressure [Ri ght Upper Arm] Pulse Oximetry 93 98 100 Oxygen Delivery Me thod Oxygen Flow Rate 07/20/24 04:02 07/20/24 05:02 07/20/24 06:02 Temperature Pulse Rate 69 69 73 Pulse Rate [Pulse Oximeter] Respiratory Rate 20 20 20 Blood Pressure 126/72 141/85 H 146/86 H Blood Pressure [Ri ght Upper Arm] Pulse Oximetry 98 99 99 Oxygen Delivery Me thod Oxygen Flow Rate 07/20/24 07:02 07/20/24 08:00 07/20/24 08:02 Temperature Pulse Rate 91 Pulse Rate [Pulse Oximeter] 63 Respiratory Rate 20 16 Blood Pressure 152/95 H Blood Pressure [Ri ght Upper Arm] 127/64 Pulse Oximetry 98 98 97 Oxygen Delivery Me thod Oxygen Flow Rate <Greg Damico MD - Last Filed: 07/20/24 11:59> Course Course ED Course: Patient slept through the night uneventfully. <Rom Lanza MD - Last Filed: 07/20/24 05:15> Reevaluation(s) Reevaluation #1: Addendum: Dr. Damico took over care at 7:30 a.m. on 07/20 63-year-old male brought into the ER yesterday by EMS. He apparently [facility]. Alcohol level was 0.42. Labs showed normal electrolytes and normal anion gap. He does have pancytopenia on his CBC. He was intoxicated but otherwise cooperative. He has been sleeping in the ER overnight without any events. Plan is for him to discharge this morning when he is sober, or when he can arrange a sober ride home. Patient was clinically sober and was able to discharge home by private car. <Greg Damico MD - Last Filed: 07/20/24 11:59> Vital Signs Vital signs: Initial Vital Signs Temperature 98.2 F 07/19/24 15:51 Temperature Source Temporal Artery Scan 07/19/24 15:51 Pulse Rate 82 07/19/24 15:51 Respiratory Rate 16 07/19/24 15:51 Blood Pressure 95/61 07/19/24 15:51 Blood Pressure Mean 72 07/19/24 15:51 Blood Pressure Position Sitting 07/19/24 15:51 Pulse Oximetry 86 L 07/19/24 15:51 Oxygen Delivery Method Room Air 07/19/24 15:51 Vital Signs Temperature 98.2 F 07/19/24 15:51 Pulse Rate 82 07/19/24 15:51 Respiratory Rate 16 07/19/24 15:51 Blood Pressure 95/61 07/19/24 15:51 Pulse Oximetry 86 L 07/19/24 15:51 Oxygen Delivery Method Room Air 07/19/24 15:51 Temperature 98.2 F 07/19/24 19:05 Pulse Rate 63 07/20/24 08:00 Respiratory Rate 16 07/20/24 08:00 Blood Pressure 127/64 07/20/24 08:00 Pulse Oximetry 97 07/20/24 08:02 Oxygen Delivery Method Nasal Cannula 07/19/24 21:20 Oxygen Flow Rate 1 07/19/24 21:20 <Joaquin Heaton DO - Last Filed: 07/20/24 00:54> Initial Vital Signs Temperature 98.2 F 07/19/24 15:51 Temperature Source Temporal Artery Scan 07/19/24 15:51 Pulse Rate 82 07/19/24 15:51 Respiratory Rate 16 07/19/24 15:51 Blood Pressure 95/61 07/19/24 15:51 Blood Pressure Mean 72 07/19/24 15:51 Blood Pressure Position Sitting 07/19/24 15:51 Pulse Oximetry 86 L 07/19/24 15:51 Oxygen Delivery Method Room Air 07/19/24 15:51 Vital Signs Temperature 98.2 F 07/19/24 15:51 Pulse Rate 82 07/19/24 15:51 Respiratory Rate 16 07/19/24 15:51 Blood Pressure 95/61 07/19/24 15:51 Pulse Oximetry 86 L 07/19/24 15:51 Oxygen Delivery Method Room Air 07/19/24 15:51 Temperature 98.2 F 07/19/24 19:05 Pulse Rate 63 07/20/24 08:00 Respiratory Rate 16 07/20/24 08:00 Blood Pressure 127/64 07/20/24 08:00 Pulse Oximetry 97 07/20/24 08:02 Oxygen Delivery Method Nasal Cannula 07/19/24 21:20 Oxygen Flow Rate 1 07/19/24 21:20 <Rom Lanza MD - Last Filed: 07/20/24 05:15> Initial Vital Signs Temperature 98.2 F 07/19/24 15:51 Temperature Source Temporal Artery Scan 07/19/24 15:51 Pulse Rate 82 07/19/24 15:51 Respiratory Rate 16 07/19/24 15:51 Blood Pressure 95/61 07/19/24 15:51 Blood Pressure Mean 72 07/19/24 15:51 Blood Pressure Position Sitting 07/19/24 15:51 Pulse Oximetry 86 L 07/19/24 15:51 Oxygen Delivery Method Room Air 07/19/24 15:51 Vital Signs Temperature 98.2 F 07/19/24 15:51 Pulse Rate 82 07/19/24 15:51 Respiratory Rate 16 07/19/24 15:51 Blood Pressure 95/61 07/19/24 15:51 Pulse Oximetry 86 L 07/19/24 15:51 Oxygen Delivery Method Room Air 07/19/24 15:51 Temperature 98.2 F 07/19/24 19:05 Pulse Rate 63 07/20/24 08:00 Respiratory Rate 16 07/20/24 08:00 Blood Pressure 127/64 07/20/24 08:00 Pulse Oximetry 97 07/20/24 08:02 Oxygen Delivery Method Nasal Cannula 07/19/24 21:20 Oxygen Flow Rate 1 07/19/24 21:20 <Greg Damico MD - Last Filed: 07/20/24 11:59> Medications Administered Medications: Discontinued Medications Generic Name Dose Route Start Last Admin Trade Name Freq PRN Reason Stop Dose Admin Lactated Ringer's 1,000 mls @ 1,000 mls/hr 07/19/24 18:28 07/19/24 19:42 Lactated Ringers 1000 Ml IV 07/19/24 19:27 Infused .Q1H ONE Infusion <Joaquin Heaton DO - Last Filed: 07/20/24 00:54> Discontinued Medications Generic Name Dose Route Start Last Admin Trade Name Freq PRN Reason Stop Dose Admin Lactated Ringer's 1,000 mls @ 1,000 mls/hr 07/19/24 18:28 07/19/24 19:42 Lactated Ringers 1000 Ml IV 07/19/24 19:27 Infused .Q1H ONE Infusion <Rom Lanza MD - Last Filed: 07/20/24 05:15> Discontinued Medications Generic Name Dose Route Start Last Admin Trade Name Freq PRN Reason Stop Dose Admin Lactated Ringer's 1,000 mls @ 1,000 mls/hr 07/19/24 18:28 07/19/24 19:42 Lactated Ringers 1000 Ml IV 07/19/24 19:27 Infused .Q1H ONE Infusion <Greg Damico MD - Last Filed: 07/20/24 11:59> Medical Decision Making MDM Narrative Medical decision making narrative: Patient is a 63-year-old male presents for alcohol intoxication. For his alcoholism I will do a CBC and BMP to make sure her electrolytes are within normal limits and there are no other abnormal findings. Will also check his alcohol level. Patient given a cup of water for dehydration. CBC shows signs of pancytopenia likely from his alcoholism. BMP shows no concerning findings. His alcohol level 0.42. We asked him if he has anyone who he can call back and pick him up and he states no. Due to his level of intoxication I do not feel comfortable discharging him at this time. He will be signed out to my night colleague. <Joaquin Heaton DO - Last Filed: 07/20/24 00:54> Lab Data Labs: Lab Results 07/19/24 Range/Units 16:23 WBC 2.02 L (4.50-11.00) K/uL RBC 3.26 L (4.30-5.90) m/uL Hgb 11.2 L (13.5-17.5) gm/dL Hct 34.4 L (37.0-53.0) % MCV 106 H (80-100) fL MCH 34 (26-34) pg MCHC 33 (32-36) gm/dL RDW Coeff of Guerita 13.0 (11.5-15.5) % Plt Count 137 L (140-440) K/uL Neut % (Auto) 54.9 (42.0-72.0) % Lymph % (Auto) 31.2 (20-44) % [place] % (Auto) 9.9 (0.0-11.0) % Eos % (Auto) 2.5 (0.0-7.0) % Baso % (Auto) 1.0 (0.0-3.0) % Neut # (Auto) 1.10 L (1.7-7.0) K/uL Lymph # (Auto) 0.60 L (0.90-2.90) K/uL [place] # (Auto) 0.20 (0.00-0.90) K/UL Eos # (Auto) 0.10 (0.00-0.50) K/uL Baso # (Auto) 0.00 (0.00-0.30) K/uL Abs Immat Gran (auto) 0.00 (0.00-0.30) K/uL Imm/Tot Granulo (auto) 0.5 % Sodium 145 (135-149) mmol/L Potassium 3.9 (3.6-5.1) mmol/L Chloride 104 (96-114) mmol/L Carbon Dioxide 28 (20-32) mmol/L Anion Gap 13 (7-15) mEq/L BUN 12 (7-30) mg/dL Creatinine 0.6 (0.5-1.5) mg/dL Estimated Creat Clear 86.77 Estimated GFR 108 ml/min Glucose 91 (60-115) mg/dL Calcium 8.8 (8.4-10.6) mg/dL Ethyl Alcohol 0.42 H* (0.01-0.03) % <Joaquin Heaton, DO - Last Filed: 07/20/24 00:54> Lab Results 07/19/24 Range/Units 16:23 WBC 2.02 L (4.50-11.00) K/uL RBC 3.26 L (4.30-5.90) m/uL Hgb 11.2 L (13.5-17.5) gm/dL Hct 34.4 L (37.0-53.0) % MCV 106 H (80-100) fL MCH 34 (26-34) pg MCHC 33 (32-36) gm/dL RDW Coeff of Guerita 13.0 (11.5-15.5) % Plt Count 137 L (140-440) K/uL Neut % (Auto) 54.9 (42.0-72.0) % Lymph % (Auto) 31.2 (20-44) % [place] % (Auto) 9.9 (0.0-11.0) % Eos % (Auto) 2.5 (0.0-7.0) % Baso % (Auto) 1.0 (0.0-3.0) % Neut # (Auto) 1.10 L (1.7-7.0) K/uL Lymph # (Auto) 0.60 L (0.90-2.90) K/uL [place] # (Auto) 0.20 (0.00-0.90) K/UL Eos # (Auto) 0.10 (0.00-0.50) K/uL Baso # (Auto) 0.00 (0.00-0.30) K/uL Abs Immat Gran (auto) 0.00 (0.00-0.30) K/uL Imm/Tot Granulo (auto) 0.5 % Sodium 145 (135-149) mmol/L Potassium 3.9 (3.6-5.1) mmol/L Chloride 104 (96-114) mmol/L Carbon Dioxide 28 (20-32) mmol/L Anion Gap 13 (7-15) mEq/L BUN 12 (7-30) mg/dL Creatinine 0.6 (0.5-1.5) mg/dL Estimated Creat Clear 86.77 Estimated GFR 108 ml/min Glucose 91 (60-115) mg/dL Calcium 8.8 (8.4-10.6) mg/dL Ethyl Alcohol 0.42 H* (0.01-0.03) % <Rom Lanza MD - Last Filed: 07/20/24 05:15> Lab Results 07/19/24 Range/Units 16:23 WBC 2.02 L (4.50-11.00) K/uL RBC 3.26 L (4.30-5.90) m/uL Hgb 11.2 L (13.5-17.5) gm/dL Hct 34.4 L (37.0-53.0) % MCV 106 H (80-100) fL MCH 34 (26-34) pg MCHC 33 (32-36) gm/dL RDW Coeff of Guerita 13.0 (11.5-15.5) % Plt Count 137 L (140-440) K/uL Neut % (Auto) 54.9 (42.0-72.0) % Lymph % (Auto) 31.2 (20-44) % [place] % (Auto) 9.9 (0.0-11.0) % Eos % (Auto) 2.5 (0.0-7.0) % Baso % (Auto) 1.0 (0.0-3.0) % Neut # (Auto) 1.10 L (1.7-7.0) K/uL Lymph # (Auto) 0.60 L (0.90-2.90) K/uL [place] # (Auto) 0.20 (0.00-0.90) K/UL Eos # (Auto) 0.10 (0.00-0.50) K/uL Baso # (Auto) 0.00 (0.00-0.30) K/uL Abs Immat Gran (auto) 0.00 (0.00-0.30) K/uL Imm/Tot Granulo (auto) 0.5 % Sodium 145 (135-149) mmol/L Potassium 3.9 (3.6-5.1) mmol/L Chloride 104 (96-114) mmol/L Carbon Dioxide 28 (20-32) mmol/L Anion Gap 13 (7-15) mEq/L BUN 12 (7-30) mg/dL Creatinine 0.6 (0.5-1.5) mg/dL Estimated Creat Clear 86.77 Estimated GFR 108 ml/min Glucose 91 (60-115) mg/dL Calcium 8.8 (8.4-10.6) mg/dL Ethyl Alcohol 0.42 H* (0.01-0.03) % <Greg Damico MD - Last Filed: 07/20/24 11:59> Discharge Plan Discharge Clinical Impression: Alcoholic intoxication Qualifiers: Complication of substance-induced condition: uncomplicated Qualified Code(s): F10.920 - Alcohol use, unspecified with intoxication, uncomplicated <Joaquin Heaton DO - Last Filed: 07/20/24 00:54> Patient Disposition: Home, Self-Care <Joaquin Heaton DO - Last Filed: 07/20/24 00:54> Condition: Improved <Joaquin Heaton DO - Last Filed: 07/20/24 00:54> Instructions: Abuse of Alcohol (DC) <Joaquin Heaton DO - Last Filed: 07/20/24 00:54> Additional Instructions: It is important that you seek care for your alcohol abuse as it can lead to your . <Joaquin Heaton DO - Last Filed: 07/20/24 00:54> Prescriptions: No Action atorvastatin 20 mg tablet 20 mg PO QPM Qty: 90 3RF peg 3350-electrolytes [Golytely] 236-22.74-6.74 -5.86 gram recon soln 240 ml PO Q10M Qty: 4000 0RF Rx Instructions: until fecal effluent is clear <Joaquin Heaton DO - Last Filed: 07/20/24 00:54> Follow Up/Referrals: Teddy Parry MD [Primary Care Provider] - <Joaquin Heaton DO - Last Filed: 07/20/24 00:54> Stand Alone Forms: MyHealth Info Instructions <Joaquin Heaton DO - Last Filed: 07/20/24 00:54>
[2024-07-19 16:40] LABS: Slide Review Reflex No
[2024-07-19 16:47] LABS: Chloride* 104 mmol/L (96-114); Potassium* 3.9 mmol/L (3.6-5.1); Sodium* 145 mmol/L (135-149)
[2024-07-19 16:50] LABS: Anion Gap 13 mEq/L (7-15); Blood Urea Nitrogen* 12 mg/dL (7-30); Carbon Dioxide* 28 mmol/L (20-32); Creatinine* 0.6 mg/dL (0.5-1.5); Est. Creatinine Clearance* 86.77; Estimated Glomerular Filt Rate 108 ml/min
[2024-07-19 16:51] LABS: Calcium* 8.8 mg/dL (8.4-10.6); Glucose* 91 mg/dL (60-115)
--- OUTSIDE RECORDS SUMMARY | 2024-07-19 16:58 | XMS_ITS | Clinical Summary ---
Author Organization [facility] Address [place], [place] [address] Care Team Providers Care Brake Repairer Hydraulic Name Role Phone Nonstaff, Doctor Primary Care [...] Active acetic acid 0.25% 0.25 % irrigation 08/25/2022 Active oxyCODONE (ROXICODONE) 5 mg immediate release tabletIndications:A cute osteomyelitis of toe, unspecified laterality (HC) Take 1-2 Tablets (5-10 mg) by mouth every 4 hours if needed for Pain. 10 Tablet 12/27/2023 Active durable medical equipment (DME)Indications:Cerrato mmertoe of second toe of right foot,Hammertoe of second toe of left foot,S/P orthopedic surgery, follow-up exam SQUARED TOE POST OP SHOE, LARGE, REF: [phone] 2 Each 12/29/2023 Active doxycycline (ADOXA) 100 mg tabletIndications:A cute osteomyelitis of toe, unspecified laterality (HC),S/P orthopedic surgery, follow-up exam Take 1 Tablet (100 mg) by mouth two times daily. 14 Tablet 01/19/2024 Active Active Problems Problem Noted Date Diagnosed Date SVT (supraventricular tachycardia) 12/19/2018 T12 compression fracture 12/13/2018 Back pain 12/13/2018 History of alcohol abuse 12/13/2018 Immunizations Name Administration Dates Next Due Influenza, [...] Comments Blood Pressure 110/69 12/24/2023 12:49 PM HOME ENERGY RATER Pulse 110 01/19/2024 2:01 PM CDT Temperature 36.9 ??C (98.4 ??F) 01/19/2024 2:01 PM CD T Respiratory Rate 14 08/31/2022 10:10 AM CDT Oxygen Saturation 93% 01/19/2024 2:01 PM CDT Inhaled Oxygen Concentration - - Weight 94.2 kg (207 lb 9.6 oz) 12/24/2023 12:49 PM HOME ENERGY RATER Height 182.9 cm (6') 12/24/2023 12:49 PM HOME ENERGY RATER Body Mass Index 28.16 12/24/2023 12:49 PM HOME ENERGY RATER Plan of Treatment Health Maintenance Due Date Last Done Comments Depression screening for age 12+ 1971 HIV for age 15-65 1974 Hepatitis C screening for age 18-79 1977 Colonoscopy through age 75 2004 Lipids for age 45-75 2004 Zoster (shingles) series for age 50+ (2 of 2) 12/06/2023 10/11/2023 Tetanus booster 02/10/2024 02/09/2014 Influenza for age 50-64 07/09/2024 09/14/20, 07/17/2021, 12/14/2018, Additional history exists BMI (ht and wt on same day) for age 18+ 12/24/2024 12/24/2023, 12/22/2018 Tdap Completed 02/09/2014 COVID-19 vaccine series Completed 10/11/20, 10/21/2021, 04/01/2021, Additional history exists Pneumococcal series for age 6-64 Aged Out No longer eligible based on patient's age to complete this topic Advance Directives * Full Code (Latest Code Status on File) Date Activated Date Inactivated Comments 08/31/2022 8:37 AM 08/31/2022 1:03 PM Question Answer Comments Code Status Discussion: Reviewed Preferences * Full Code Date Activated Date Inactivated Comments 12/13/2018 7:04 PM 12/19/2018 11:23 PM Care Teams Brake Repairer Hydraulic Relationship Specialty Start Date End Date Nonstaff, Doctor NON STAFF DOCTOR PCP - General 12/13/18
[2024-07-19 17:02] LABS: Ethanol* 0.42 % (0.01-0.03)
--- NOTE | 2024-07-19 17:23 | ED.NURSE ---
Pt is resting in bed at this time
[2024-07-19] MEDS: LACTATED RINGERS 1000 ML 1,000 ML IV (18:45)
[2024-07-20] VITALS (10 sets, daily range): BP systolic 118–152; BP diastolic 64–96; PULSE 60–91; RESP 16–20; O2SAT 91–100
== END 2024-07-20 08:52 | disposition home or self-care (01) ==
PROVIDERS: Student in an Organized Health Care Education/Training Program; Emergency Provider Emergency Medicine; PCP Family Medicine
DX: F10.129 Alcohol abuse with intoxication, unspecified (principal)
CPT/HCPCS: 36415; 80048; 82077; 85025; 94761; 96360; 99283; J7120

== ENCOUNTER 2024-07-21 21:18 | Outpatient (CLI) | payer BC, SELFPAY ==
--- OUTSIDE RECORDS SUMMARY | 2024-07-25 02:04 | XMS_ITS | Clinical Summary ---
Author Organization [employer] [facility] Address [place], [place] [address] Care Team Providers Care Glassie Name Role Phone Nonstaff, Doctor Primary Care [...] SQUARED TOE POST OP SHOE, LARGE, REF: [phone] 2 Each 12/29/2023 Active doxycycline (ADOXA) 100 [...] Comments Blood Pressure 110/69 12/24/2023 12:49 PM SOLO MUSICIAN Pulse 110 01/19/2024 2:01 PM CDT Temperature 36.9 ??C (98.4 ??F) 01/19/2024 2:01 PM CD T Respiratory Rate 14 08/31/2022 10:10 AM CDT Oxygen Saturation 93% 01/19/2024 2:01 PM CDT Inhaled Oxygen Concentration - - Weight 94.2 kg (207 lb 9.6 oz) 12/24/2023 12:49 PM SOLO MUSICIAN Height 182.9 cm (6') 12/24/2023 12:49 PM SOLO MUSICIAN Body Mass Index 28.16 12/24/2023 12:49 PM SOLO MUSICIAN Plan of Treatment Health Maintenance Due Date [...] 7:04 PM 12/19/2018 11:23 PM Care Teams Glassie Relationship Specialty Start Date End Date Nonstaff, Doctor NON STAFF DOCTOR PCP - General 12/13/18
--- OUTSIDE RECORDS SUMMARY | 2024-08-01 00:27 | XMS_ITS | Clinical Summary ---
Author Organization [employer] [facility] Address [place], [place] [address] Care Team Providers Care 3D Specialist Name Role Phone Nonstaff, Doctor Primary Care [...] SQUARED TOE POST OP SHOE, LARGE, REF: [phone] 2 Each 12/29/2023 Active doxycycline (ADOXA) 100 [...] Comments Blood Pressure 110/69 12/24/2023 12:49 PM FLIGHT KITCHEN MANAGER Pulse 110 01/19/2024 2:01 PM CDT Temperature 36.9 ??C (98.4 ??F) 01/19/2024 2:01 PM CD T Respiratory Rate 14 08/31/2022 10:10 AM CDT Oxygen Saturation 93% 01/19/2024 2:01 PM CDT Inhaled Oxygen Concentration - - Weight 94.2 kg (207 lb 9.6 oz) 12/24/2023 12:49 PM FLIGHT KITCHEN MANAGER Height 182.9 cm (6') 12/24/2023 12:49 PM FLIGHT KITCHEN MANAGER Body Mass Index 28.16 12/24/2023 12:49 PM FLIGHT KITCHEN MANAGER Plan of Treatment Health Maintenance Due Date [...] 7:04 PM 12/19/2018 11:23 PM Care Teams 3D Specialist Relationship Specialty Start Date End Date Nonstaff, Doctor NON STAFF DOCTOR PCP - General 12/13/18
== END 2024-07-21 21:19 | disposition home or self-care (01) ==
LOC: AMB 08-01 00:25
PROVIDERS: PCP Family Medicine; Visit Provider Student in an Organized Health Care Education/Training Program
DX: R20.0 Anesthesia of skin (principal); R53.1 Weakness
CPT/HCPCS: A0425; A0429

== ENCOUNTER 2024-07-21 21:56 | Emergency (ER) | payer BC, SELFPAY ==
[2024-07-21] VITALS (10 sets, daily range): BP systolic 107–136; BP diastolic 66–84; PULSE 68–81; RESP 18; TEMP 36.4; O2SAT 93–98; BMI 24.4
--- NOTE | 2024-07-21 22:25 | ED_ITS ---
HPI - General Adult General Chief complaint: Weakness Stated complaint: leg weakness Time Seen by Provider: 07/21/24 22:15 History of Present Illness HPI narrative: This 63-year-old male comes in because of an episode of weakness prior to arrival. He was walking home and states that his legs both became weak. He was by a tree and held onto the tree to ease himself to the ground. He states that he laid there for about an hour. He has an abrasion on his right forearm as he was sliding down with the tree in his arms. He has a history of alcohol abuse and currently is intoxicated with slurred speech and smells of alcohol. He states that a person walked by and asked if he needed help. He came in by ambulance and did receive 500 mL of IV fluids prior to arrival. He was able to get up and ambulate. 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 He states that he felt like that numbness had increased causing him to lose strength to his legs. Related Data Previous Rx's ?Medication ?Instructions ?Recorded atorvastatin 20 mg tablet 20 mg PO QPM #90 tabs 08/27/22 Allergies Allergy/AdvReac Type Severity Reaction Status Date / Time aspirin Allergy Intermediate swelling Verified 07/21/24 22:03 indomethacin Allergy Mild Unknown Verified 07/21/24 22:03 ibuprofen Allergy Verified 07/21/24 22:03 Review of Systems Status of ROS: Reports: 10 or more systems reviewed and unremarkable except as noted in History and below Narrative: Constitutional: No fevers, no weight gain or loss. Eyes: No discharge. No vision changes. HENT: No congestion, no sore throat, no ear pain. Cardiovascular: No chest pain, no palpitations. Respiratory: No shortness of breath, no wheezes, no cough. Gastrointestinal: No abdominal pain, no vomiting, no diarrhea. Genitourinary: No dysuria, no hematuria. Musculoskeletal: Normal range of motion. Skin: No rashes, no pruritis. Neurological: No dizziness, speech change. He reports an episode of weakness in his legs as described above. Endo/Heme/Allergies: No bruising or bleeding. No polydipsia. Pysch: no suicidality, no anxiety, no insomnia. All other systems reviewed and are negative. [facility] Medical History Osteomyelitis ?M86.9 - Osteomyelitis, unspecified (ICD-10) Alcohol abuse ?F10.10 - Alcohol abuse, uncomplicated (ICD-10) Bilateral foot pain ?M79.671 - Pain in right foot (ICD-10) ?M79.672 - Pain in left foot (ICD-10) Peripheral neuropathy ?G62.9 - Polyneuropathy, unspecified (ICD-10) Hyperlipidemia ?E78.5 - Hyperlipidemia, unspecified (ICD-10) Seasonal allergic rhinitis ?J30.2 - Other seasonal allergic rhinitis (ICD-10) Hyperkeratosis of sole ?L85.9 - Epidermal thickening, unspecified (ICD-10) Compression fracture of twelfth thoracic vertebra ?S22.080A - Wedge compression fracture of T11-T12 vertebra, initial encounter for closed fracture (ICD-10) Surgical History History of amputation of great toe ?Z89.419 - Acquired absence of unspecified great toe (ICD-10) History of right inguinal hernia repair ?Z98.890 - Other specified postprocedural states (ICD-10) ?Z87.19 - Personal history of other diseases of the digestive system (ICD-10) History of umbilical hernia repair ?Z98.890 - Other specified postprocedural states (ICD-10) ?Z87.19 - Personal history of other diseases of the digestive system (ICD-10) Family History Other Diabetes Social History Smoking Status: Never smoker Do you use any of these nicotine containing products: None Second hand tobacco smoke exposure: No How often do you have a drink containing alcohol: 2-3 times a week How many standard drinks containing alcohol do you have on a typical day: 3 or 4 How often do you have six or more drinks on one occasion: Never AUDIT-C Alcohol total score: 4 Non-prescribed substance use: denies use Little interest or pleasure in doing things: several days Feeling down, depressed, or hopeless: several days service: No Exam Narrative: Exam Narrative: Constitutional: Well-developed, well-nourished, no acute distress. HEENT: Normocephalic, atraumatic. Neck: Normal range of motion. Nontender. Supple. Heart: Regular. No murmurs. Normal rate. Intact distal pulses. Lungs: Clear to auscultation. No chest discomfort. No wheezes, rhonchi, or rales. Abdomen: Normal bowel sounds. Nontender. No rebound tenderness. Genitalia: Deferred. Back: No midline tenderness. Normal range of motion. Extremities: Normal range of motion. No injury. Skin: Intact. No rash. Warm. No erythema or pallor. Neurologic: No altered sensation. No weakness. Alert and oriented. His speech is slightly slurred from alcohol intoxication. No facial asymmetry. Tongue is midline. [id number] is normal. No pronator drift. Life Science Research Assistant strength is equal bilaterally. Able to raise each leg from the bed. Psychiatric: No suicidality. No anxiety or depression. No insomnia. Nursing notes and vitals signs are reviewed. Const: Vital Signs, click to edit/add: Vital Signs - 24 hr 07/21/24 21:59 Temperature 97.6 F Pulse Rate [Pulse Oximeter] 78 Respiratory Rate 18 Blood Pressure [Ri t Upper Arm] 128/84 Pulse Oximetry 93 Oxygen Delivery Me thod Room Air Course Vital Signs Vital signs: Initial Vital Signs Temperature 97.6 F 07/21/24 21:59 Temperature Source Temporal Artery Scan 07/21/24 21:59 Pulse Rate 78 07/21/24 21:59 Respiratory Rate 18 07/21/24 21:59 Blood Pressure 128/84 07/21/24 21:59 Blood Pressure Mean 98 07/21/24 21:59 Blood Pressure Position Supine 07/21/24 21:59 Pulse Oximetry 93 07/21/24 21:59 Oxygen Delivery Method Room Air 07/21/24 21:59 Vital Signs Temperature 97.6 F 07/21/24 21:59 Pulse Rate 78 07/21/24 21:59 Respiratory Rate 18 07/21/24 21:59 Blood Pressure 128/84 07/21/24 21:59 Pulse Oximetry 93 07/21/24 21:59 Oxygen Delivery Method Room Air 07/21/24 21:59 Temperature 97.6 F 07/21/24 21:59 Pulse Rate 78 07/21/24 21:59 Respiratory Rate 18 07/21/24 21:59 Blood Pressure 128/84 07/21/24 21:59 Pulse Oximetry 93 07/21/24 21:59 Oxygen Delivery Method Room Air 07/21/24 21:59 Medications Administered Medications: Discontinued Medications Generic Name Dose Route Start Last Admin Trade Name Opal PRN Reason Stop Dose Admin Sodium Chloride 1,000 mls @ 1,000 mls/hr 07/21/24 22:30 07/21/24 22:37 0.9 % Sodium Chloride 1000 Ml IV 07/21/24 23:29 1,000 mls/hr .Q1H KARI Administration Medical Decision Making MDM Narrative Medical decision making narrative: This patient comes in for evaluation of episode of weakness as described above. He is clearly intoxicated with alcohol and blood alcohol level does return at 0.34. There are no other findings that are concerning. He has been able to get up and ambulate. He is functional despite this blood alcohol level. He is okay to be discharged back home and states that he would need to have a ride. An attempt is being made to arrange a cab ride to send him home. He has a chronic history of alcohol abuse. He is not showing any signs of withdrawal. Lab Data Labs: Lab Results 07/21/24 Range/Units 22:35 WBC 3.82 L (4.50-11.00) K/uL RBC 3.35 L (4.30-5.90) m/uL Hgb 11.5 L (13.5-17.5) gm/dL Hct 35.1 L (37.0-53.0) % MCV 105 H (80-100) fL MCH 34 (26-34) pg MCHC 33 (32-36) gm/dL RDW Coeff of Guerita 12.8 (11.5-15.5) % Plt Count 152 (140-440) K/uL Neut % (Auto) 69.4 (42.0-72.0) % Lymph % (Auto) 17.0 L (20-44) % Bleckley % (Auto) 10.5 (0.0-11.0) % Eos % (Auto) 1.8 (0.0-7.0) % Baso % (Auto) 0.5 (0.0-3.0) % Neut # (Auto) 2.70 (1.7-7.0) K/uL Lymph # (Auto) 0.60 L (0.90-2.90) K/uL Bleckley # (Auto) 0.40 (0.00-0.90) K/UL Eos # (Auto) 0.10 (0.00-0.50) K/uL Baso # (Auto) 0.00 (0.00-0.30) K/uL Abs Immat Gran (auto) 0.00 (0.00-0.30) K/uL Imm/Tot Granulo (auto) 0.8 % Sodium 145 (135-149) mmol/L Potassium 3.7 (3.6-5.1) mmol/L Chloride 103 (96-114) mmol/L Carbon Dioxide 29 (20-32) mmol/L Anion Gap 13 (7-15) mEq/L BUN 10 (7-30) mg/dL Creatinine 0.6 (0.5-1.5) mg/dL Estimated Creat Clear 86.77 Estimated GFR 108 ml/min Glucose 96 (60-115) mg/dL Calcium 9.1 (8.4-10.6) mg/dL Ethyl Alcohol 0.34 H* (0.01-0.03) % Discharge Plan Discharge Clinical Impression: Alcohol intoxication in active alcoholic Patient Disposition: Home, Self-Care Condition: Unchanged Additional Instructions: Follow-up with MD. Avoid alcohol. Consider detox if having withdrawal symptoms. Return if worsening. Prescriptions: No Action atorvastatin 20 mg tablet 20 mg PO QPM Qty: 90 3RF Hold Instructions: Pt not taking Follow Up/Referrals: Teddy Parry MD [Primary Care Provider] - Stand Alone Forms: [employer] Info Instructions
--- OUTSIDE RECORDS SUMMARY | 2024-07-21 22:30 | XMS_ITS | Clinical Summary ---
Author Organization [employer] [facility] Address [place], [place] [address] Care Team Providers Care Ranch Hand Livestock Name Role Phone Nonstaff, Doctor Primary Care [...] SQUARED TOE POST OP SHOE, LARGE, REF: [phone] 2 Each 12/29/2023 Active doxycycline (ADOXA) 100 [...] Comments Blood Pressure 110/69 12/24/2023 12:49 PM LABORATORY SAMPLE CARRIER Pulse 110 01/19/2024 2:01 PM CDT Temperature 36.9 ??C (98.4 ??F) 01/19/2024 2:01 PM CD T Respiratory Rate 14 08/31/2022 10:10 AM CDT Oxygen Saturation 93% 01/19/2024 2:01 PM CDT Inhaled Oxygen Concentration - - Weight 94.2 kg (207 lb 9.6 oz) 12/24/2023 12:49 PM LABORATORY SAMPLE CARRIER Height 182.9 cm (6') 12/24/2023 12:49 PM LABORATORY SAMPLE CARRIER Body Mass Index 28.16 12/24/2023 12:49 PM LABORATORY SAMPLE CARRIER Plan of Treatment Health Maintenance Due Date [...] 7:04 PM 12/19/2018 11:23 PM Care Teams Ranch Hand Livestock Relationship Specialty Start Date End Date Nonstaff, Doctor NON STAFF DOCTOR PCP - General 12/13/18
[2024-07-21] MEDS: 0.9 % SODIUM CHLORIDE 1000 ml 1,000 ML IV (22:37)
[2024-07-21 22:55] LABS: Basophils Percent Auto 0.5 % (0.0-3.0); Eosinophils Percent Auto 1.8 % (0.0-7.0); Hematocrit 35.1 % (37.0-53.0); Hemoglobin* 11.5 gm/dL (13.5-17.5); Immature Granulocytes Pct Auto 0.8 %; Mean Corpuscular HGB Conc 33 gm/dL (32-36); Mean Corpuscular Hemoglobin 34 pg (26-34); Mean Corpuscular Volume 105 fL (80-100); Monocytes Percent Auto 10.5 % (0.0-11.0); Neutrophils Percent Auto 69.4 % (42.0-72.0); Platelet Count* 152 K/uL (140-440); RDW Coefficient of Variation % 12.8 % (11.5-15.5); Red Blood Count 3.35 m/uL (4.30-5.90); White Blood Count* 3.82 K/uL (4.50-11.00)
[2024-07-21 22:56] LABS: Slide Review Reflex No
[2024-07-21 23:13] LABS: Chloride* 103 mmol/L (96-114); Potassium* 3.7 mmol/L (3.6-5.1); Sodium* 145 mmol/L (135-149)
[2024-07-21 23:16] LABS: Anion Gap 13 mEq/L (7-15); Blood Urea Nitrogen* 10 mg/dL (7-30); Carbon Dioxide* 29 mmol/L (20-32); Creatinine* 0.6 mg/dL (0.5-1.5); Est. Creatinine Clearance* 86.77; Estimated Glomerular Filt Rate 108 ml/min
[2024-07-21 23:17] LABS: Calcium* 9.1 mg/dL (8.4-10.6); Glucose* 96 mg/dL (60-115)
[2024-07-21 23:33] LABS: Ethanol* 0.34 % (0.01-0.03)
[2024-07-22] VITALS: PULSE 68; O2SAT 91
--- NOTE | 2024-07-22 06:38 | ED.NURSE ---
Pt has been sleeping soundly. Breathing has been even and unlabored. Has repositioned self. Plan to look for ride when he wakes up.
== END 2024-07-22 07:40 | disposition home or self-care (01) ==
PROVIDERS: Emergency Medicine Emergency Medical Services; Emergency Provider Emergency Medicine; PCP Family Medicine
DX: F10.229 Alcohol dependence with intoxication, unspecified (principal)
CPT/HCPCS: 36415; 80048; 82077; 85025; 96360; 99283; 99284; J7030

== ENCOUNTER 2025-04-07 15:47 | Outpatient (CLI) | payer MEDICARE, SELFPAY | END 2025-04-07 15:48 | disposition home or self-care (01) | LOC: AMB 04-09 11:33 | PROVIDERS: PCP Family Medicine; Visit Provider Family Medicine | DX: F10.129 Alcohol abuse with intoxication, unspecified (principal); R41.82 Altered mental status, unspecified | CPT/HCPCS: A0425; A0429 ==

== ENCOUNTER 2025-04-07 16:18 | Emergency (ER) | payer MEDICARE, SELFPAY ==
[2025-04-07] VITALS (39 sets, daily range): BP systolic 105–130; BP diastolic 67–91; PULSE 61–94; RESP 9–36; TEMP 36.5; O2SAT 84–99; BMI 24.4
--- OUTSIDE RECORDS SUMMARY | 2025-04-07 16:21 | XMS_ITS | Encounter Summary ---
Author Organization [facility] Address [address] [place] [address] Care Team Providers Care Core Measures Abstractor Name Role Phone Iván Prajapati MD Primary Care Provider [phone] Encounter Details Date Type Department Care Team (Latest Contact Info) Description 03/13/1999 Orders Only Jose Carlos Norman DDS Social History Tobacco Use Types Packs/Day Years Used Date Smoking Tobacco: Never Assessed Sex and Gender Information Value Date Recorded Sex Assigned at Not on file Legal Sex Male 3:37 AM CDT Gender Identity Not on file Sexual Orientation Not on file documented as of this encounter Plan of Treatment Not on file documented as of this encounter Visit Diagnoses Not on filedocumented in this encounter Care Teams Core Measures Abstractor Relationship Specialty Start Date End Date Iván Prajapati MD [address] [place] [address] PCP - General Internal Medicine 01/11/14 documented as of this encounter
--- OUTSIDE RECORDS SUMMARY | 2025-04-07 16:21 | XMS_ITS | Encounter Summary ---
Author Organization [facility] Address [address] [place] [address] Care Team Providers Care International Operations Manager Name Role Phone Iván Prajapati MD Primary Care Provider [phone] Encounter Details Date Type Department Care Team (Latest Contact Info) Description 03/11/1999 Orders Only Iván Prajapati MD [address] [place] [address] Social History Tobacco Use Types Packs/Day Years [...] on filedocumented in this encounter Care Teams International Operations Manager Relationship Specialty Start Date End Date Iván Prajapati MD [address] [place] [address] PCP - General Internal Medicine 01/11/14 documented as of this encounter
--- OUTSIDE RECORDS SUMMARY | 2025-04-07 16:21 | XMS_ITS | Encounter Summary ---
Author Organization [facility] Address [address] [place] [address] Care Team Providers Care Forms Builder Name Role Phone Iván Prajapati MD Primary Care Provider [phone] Encounter Details Date Type Department Care Team (Latest Contact Info) Description 09/09/1995 Orders Only Jose Carlos Norman DDS Social [...] on filedocumented in this encounter Care Teams Forms Builder Relationship Specialty Start Date End Date Iván Prajapati MD [address] [place] [address] PCP - General Internal Medicine 01/11/14 documented as of this encounter
--- OUTSIDE RECORDS SUMMARY | 2025-04-07 16:21 | XMS_ITS | Encounter Summary ---
Author Organization [facility] Address [address] [place] [address] Care Team Providers Care Flow Worker Name Role Phone Iván Prajapati MD Primary Care Provider [phone] Encounter Details Date Type Department Care Team (Late st Contact Info) Description 11/09/2014 Consent for Procedure/Treatme nt [facility] INFORMED CONSENT RECORD Social History Tobacco Use Types Packs/Day Years Used Date Smoking Tobacco: Never Alcohol Use Standard Drinks/Week Comments No 0 (1 standard drink = 0.6 oz pure alcohol) stopped 6 weeks ago but concerned about hx. of excess drinking Sex and Gender Information Value Date Recorded Sex Assigned at Not on file Legal Sex Male 3:37 AM CDT Gender Identity Not on file Sexual Orientation Not on file documented as of this encounter Plan of Treatment Not on file documented as of this encounter Visit Diagnoses Not on filedocumented in this encounter Care Teams Flow Worker Relationship Specialty Start Date End Date Iván Prajapati MD [address] [place] [address] PCP - General Internal Medicine 01/11/14 documented as of this encounter
--- OUTSIDE RECORDS SUMMARY | 2025-04-07 16:21 | XMS_ITS | Clinical Summary ---
Author Organization [employer] [facility] Address [address] [place] [id number] Care Team Providers Care Torch Burner Name Role Phone Nonstaff, Doctor Primary Care Provider Unavailab le Allergies Active Allergy Reactions Criticality Noted Date Comments Aspirin, Buffered 04/01/2010 Ibuprofen Angioedema 12/13/2018 Patient thinks he possibly had lip swelling to ibuprofen when he was young so now avoids it. Indomethacin Other - Describe In Comment Field 08/26/2022 Facial swelling per patient - swelling around lips and eyes Medications acetaminophen (TYLENOL) 325 mg tablet Take 2 tablets by mouth every 4 hours if needed (For mild pain.). Max acetaminophen dose: 4000mg in 24 hrs. 0 12/15/19 19 Active acetic acid 0.25% 0.25 % irrigation 08/25/20 22 Active oxyCODONE (ROXICODONE) 5 mg immediate release tabletIndications :Acute osteomyelitis of toe, unspecified laterality (HC) Take 1-2 Tablets (5-10 mg) by mouth every 4 hours if needed for Pain. 10 Tablet 12/27/19 24 Active durable medical equipment (DME)Indications: Hammertoe of second toe of right foot,Hammertoe of second toe of left foot,S/P orthopedic surgery, follow-up exam SQUARED TOE POST OP SHOE, LARGE, REF: [phone] 2 Each 12/29/19 24 Active doxycycline (ADOXA) 100 mg tabletIndications :Acute osteomyelitis of toe, unspecified laterality (HC),S/P orthopedic surgery, follow-up exam Take 1 Tablet (100 mg) by mouth two times daily. 14 Tablet 01/19/20 24 Active Active Problems Problem Noted Date Diagnosed Date SVT (supraventricular tachycardia) 12/19/2018 T12 compression fracture 12/13/2018 Back pain 12/13/2018 History of alcohol abuse 12/13/2018 Immunizations Immunization Administration Dates Next Due Influenza, IIV4 09/14/2023,07/17/2021,12/14/2018 [...] at Not on file Legal Sex Male 7:07 AM BOOK BINDER Gender Identity Not on file Sexual Orientation Not on file Obstetrics History Last Filed Vital Signs Vital Sign Reading Time Taken Comments Blood Pressure 110/69 12/24/2023 12:49 PM BOOK BINDER Pulse 110 01/19/2024 2:01 PM CDT Temperature 36.9 C (98.4 F) 01/19/2024 2:01 PM CDT Respiratory Rate 14 08/31/2022 10:10 AM CDT Oxygen Saturation 93% 01/19/2024 2:01 PM CDT Inhaled Oxygen Concentration - - Weight 94.2 kg (207 lb 9.6 oz) 12/24/2023 12:49 PM BOOK BINDER Height 182.9 cm (6') 12/24/2023 12:49 PM BOOK BINDER Body Mass Index 28.16 12/24/2023 12:49 PM BOOK BINDER Plan of Treatment Health Maintenance Due Date Last Done Comments Depression screening for age 12+ 1971 HIV for age 15-65 1974 Hepatitis C screening for age 18-79 1977 Pneumococcal series for age 50+ (1 of 2 - PCV) 1978 Colonoscopy through age 75 2004 Lipids for age 45-75 2004 Zoster (shingles) series for age 50+ (2 of 2) 12/06/2023 10/11/2023 Tetanus booster 02/10/2024 02/09/2014 COVID-19 vaccine series ( season) 2024 10/11/2023, 10/21/2021, 04/01/2021, Additional history exists BMI (ht and wt on same day) for age 18+ 12/24/2024 12/24/2023, 12/22/2018 Influenza Vaccine (Season Ended) 2025 09/14/2023, 07/17/2021, 12/14/2018, Additional history exists RSV vaccine for adults or (1 - 1-dose 75+ series) 2034 Tdap Completed 02/09/2014 Hepatitis B series for 19+ Aged Out N o longer eligible based on patient's age to complete this topic Insurance [facility] Advance Directives * Full Code (Latest Code Status on File) Date Activated Date Inactivated Comments 08/31/2022 8:37 AM 08/31/2022 1:03 PM Question Answer Comments Code Status Discussion: Reviewed Preferences * Full Code Date Activated Date Inactivated Comments 12/13/2018 7:04 PM 12/19/2018 11:23 PM Care Teams Torch Burner Relationship Specialty Start Date End Date Nonstaff, Doctor NON STAFF DOCTOR PCP - General 12/13/18
--- OUTSIDE RECORDS SUMMARY | 2025-04-07 16:21 | XMS_ITS | Clinical Summary ---
Author Organization [facility] Address [address] [place] [address] Care Team Providers Care Parking Officer Name Role Phone Iván Prajapati MD Primary Care Provider [phone] Source Comments You are receiving this document as you are listed as the primary care provider,follow-up provider, or the patient has been referred to you for consultation.This is in compliance with the Medicare andMedicaid EHR Incentive Program,which states Providers who transition their patient to another setting of careor provider of care or refers their patient to another provider of care shouldprovide summary care record for each transition of care or referral. [facility] Allergies Active Allergy Reactions Criticality Noted Date Comments Aspirin Other, see comments Facial swelling per patient - swelling around lips and eyes Indometacin Sodium Other, see comments Facial swelling per patient - swelling around lips and eyes Morphine And Codeine Other, see comments Facial swelling per patient - swelling around lips and eyes Naproxen PN: LW Reaction: angioedema Other 03/07/1999 PN: LW Other1: -NSAIDS Medications * This document contains information received from the source organization and may not represent a complete record from that organization. acetaminophen (AKA TYLENOL EXTRA STRENGTH) 500 MG tablet Take 2 Tabs by mouth every 8 hours as needed for Pain. 100 Tab 0 11/09/2014 Active tobramycin (TOBREX) 0.3 % eye drop solution Place 1 Drop into both eyes every 4 hours. 5 mL 08/05/2018 Active erythromycin 5 MG/GM (0.5%) eye ointment Place 0.5 Inches into both eyes every 6 hours. 3.5 g 08/05/2018 Active Active Problems Problem Noted Date Diagnosed Date Adenomatous polyp of colon 2014 Umbilical hernia 10/16/2014 Sigmoid polyp 10/11/2014 Immunizations Immunization Administration Dates Next Due Influenza Vaccine QIV 3+ yrs 100% Pres Free ([facility]) 09/12/2014 Tdap 02/09/2014 Family History Medical History Relation Name Comments Cataract Negative Family History Glaucoma Negative Family History Macular Degeneration Negative Family History Social History Tobacco Use Types Packs/Day Years Used Date Smoking Tobacco: Passive Smo ke Exposure - Never Smoker Smokeless Tobacco: Never Alcohol Use Standard Drinks/Week Comments No 0 (1 standard drink = 0.6 oz pure alcohol) stopped 6 weeks ago but concerned about hx. of excess drinking Sex and Gender Information Value Date Recorded Sex Assigned at Not on file Legal Sex Male 3:37 AM CDT Gender Identity Not on file Sexual Orientation Not on file Last Filed Vital Signs Vital Sign Reading Time Taken Comments Blood Pressure 145/85 08/05/2018 8:17 AM CDT Pulse 72 08/05/2018 8:17 AM CDT Temperature 36.7 C (98 F) 08/05/2018 8:17 AM CDT Respiratory Rate 20 08/05/2018 8:17 AM CDT Oxygen Saturation 95% 08/05/2018 8:17 AM CDT Inhaled Oxygen Concentration - - Weight 96.2 kg (212 lb) 11/09/2014 7:20 AM MELT HELPER Height 188 cm (6' 2) 11/09/2014 7:20 AM MELT HELPER Body Mass Index 27.22 11/09/2014 7:20 AM MELT HELPER Plan of Treatment Health Maintenance Due Date Last Done Comments Hep C Screening (Preventive Services) 1960 PSA Screening Discussion 1960 Pneumococcal Vaccine 50+ Yrs (1 of 1 - PCV) 2009 Zoster/Shingles Vaccine (1 o f 2) 2009 Adult Preventive Visit 02/09/2015 4, 02/23/2003 Colonoscopy 10/11/2017 10/11/2014, 10/10/2014 (Completed) Cholesterol 10/10/2019 10/10/2014, 02/23/2003 DTaP/Tdap/Td Vaccine (2 - Tdap) 02/10/2024 02/09/2014 COVID-19 Vaccine ( - 2023-2 5 season) 2024 Influenza Vaccine (Season Ended) 2025 09/12/2014 RSV Vaccine (1 - 1-dose 75+ series) 2034 HepA Vaccine Aged Out No longer eligi ble based on patient's age to complete this topic HepB Vaccine Aged Out No longer eligi ble based on patient's age to complete this topic Hib Vaccine Aged Out No longer eligi ble based on patient's age to complete this topic IPV (Polio) Vaccine Aged Out No longe r eligible based on patient's age to complete this topic MCV4 Vaccine Aged Out No longer eligi ble based on patient's age to complete this topic Meningococcal B Vaccine Aged Out No l onger eligible based on patient's age to complete this topic Procedures Procedure Name Priority Date/Time Associated Diagnosis Comments COLONOSCOPY Routine 10/11/2014 11:23 AM MELT HELPER Screen for colon cancer LIPID PANEL & DIRECT LDL (IF NEEDED) Routine 10/10/2014 9:15 AM MELT HELPER Lipid screening from Last 3 Months or Most Recently Relevant to Health Maintenance Results * COLONOSCOPY [[id number]] (10/11/2014 11:23 AM MELT HELPER) 10/11/2014 11:2 3 AM MELT HELPER Narrative [facility] - 10/11/2014 12:04 PM MELT HELPER Indications: Screening for colorectal malignant neoplasm Providers: Getachew Higgins MD, Tina Heller, SHERWIN, Tiana Danielson RN Referring MD: Iván Prajapati MD Medicines: Fentanyl 100 micrograms IV, Midazolam 3 mg IV Complications: No immediate complications. Procedure: Pre-Anesthesia Assessment: - Prior to the procedure, a History and Physical was performed, and patient medications and allergies were reviewed. The risks and benefits of the procedure and the sedation options and risks were discussed with the patient. All questions were answered and informed consent was obtained. Patient identification and proposed procedure were verified by the physician and the nurse in the pre-procedure area in the procedure room in the endoscopy suite. Mental Status Examination: alert and oriented. Airway Examination: normal oropharyngeal airway and neck mobility. Respiratory Examination: clear to auscultation. CV Examination: normal. Prophylactic Antibiotics: The patient does not require prophylactic antibiotics. Prior Anticoagulants: The patient has taken no previous anticoagulant or antiplatelet agents. ASA Grade Assessment: I - A normal, healthy patient. After reviewing the risks and benefits, the patient was deemed in satisfactory condition to undergo the procedure. The anesthesia plan was to use moderate sedation / analgesia (conscious sedation). Immediately prior to administration of medications, the patient was re-assessed for adequacy to receive sedatives. The physical status of the patient was re-assessed after the procedure. After I obtained informed consent, the scope was passed under direct vision. Prior to sedation, patient identity and procedure was reverified. Throughout the procedure, the patient's blood pressure, pulse, and oxygen saturations were monitored continuously. The Colonoscope was introduced through the anus and advanced to the cecum, identified by appendiceal orifice and ileocecal valve. The colonoscopy was performed without difficulty. The patient tolerated the procedure well. The quality of the bowel preparation was adequate. Findings: A sessile polyp was found in the sigmoid colon. The polyp was 4 mm in size. The polyp was removed with a cold biopsy forceps. Resection and retrieval were complete. A sessile polyp was found in the sigmoid colon. The polyp was 10 mm in size. The polyp was removed with a hot snare. Resection and retrieval were complete. Internal hemorrhoids were found during retroflexion and were small. Impression: - One 4 mm polyp in the sigmoid colon. Resected and retrieved. - One 10 mm polyp in the sigmoid colon. Resected and retrieved. - Internal hemorrhoids. Recommendation: - Await pathology results. - If the pathology report reveals adenomatous tissue, then repeat the colonoscopy for surveillance in 3 years. Otherwise in 5 years. - Return to primary care physician. Procedure Code(s): --- Professional --- 02586, PT, Colonoscopy, flexible, proximal to splenic flexure; with removal of tumor(s), polyp(s), or other lesion(s) by snare technique Diagnosis Code(s): --- Professional --- V76.51, Special screening for malignant neoplasms of colon 211.3, Benign neoplasm of colon 455.0, Internal hemorrhoids without mention of complication CPT copyright 2013 [employer]. All rights reserved. The codes documented in this report are preliminary and upon hot die press feeder review may be revised to meet current compliance requirements. Attending Participation: Getachew Higgins MD 10/11/2014 12:03 PM This report has been signed electronically. Number of Addenda: 0 Note Initiated On: 10/11/2014 11:23 AM Procedure Note Getachew Higgins MD - 10/11/2014 Indications: Screening for colorectal malignant neoplasm Providers: Getachew Higgins MD, Tina Heller RN, Tiana Danielson RN Referring MD: Iván Prajapati MD Medicines: Fentanyl 100 micrograms IV, Midazolam 3 mg IV Complications: No immediate complications. Procedure: Pre-Anesthesia Assessment: - Prior to the procedure, a History and Physical was performed, and patient medications and allergies were reviewed. The risks and benefits of the procedure and the sedation options and risks were discussed with the patient. All questions were answered and informed consent was obtained. Patient identification and proposed procedure were verified by the physician and the nurse in the pre-procedure area in the procedure room in the endoscopy suite. Mental Status Examination: alert and oriented. Airway Examination: normal oropharyngeal airway and neck mobility. Respiratory Examination: clear to auscultation. CV Examination: normal. Prophylactic Antibiotics: The patient does not require prophylactic antibiotics. Prior Anticoagulants: The patient has taken no previous anticoagulant or antiplatelet agents. ASA Grade Assessment: I - A normal, healthy patient. After reviewing the risks and benefits, the patient was deemed in satisfactory condition to undergo the procedure. The anesthesia plan was to use moderate sedation / analgesia (conscious sedation). Immediately prior to administration of medications, the patient was re-assessed for adequacy to receive sedatives. The physical status of the patient was re-assessed after the procedure. After I obtained informed consent, the scope was passed under direct vision. Prior to sedation, patient identity and procedure was reverified. Throughout the procedure, the patient's blood pressure, pulse, and oxygen saturations were monitored continuously. The Colonoscope was introduced through the anus and advanced to the cecum, identified by appendiceal orifice and ileocecal valve. The colonoscopy was performed without difficulty. The patient tolerated the procedure well. The quality of the bowel preparation was adequate. Findings: A sessile polyp was found in the sigmoid colon. The polyp was 4 mm in size. The polyp was removed with a cold biopsy forceps. Resection and retrieval were complete. A sessile polyp was found in the sigmoid colon. The polyp was 10 mm in size. The polyp was removed with a hot snare. Resection and retrieval were complete. Internal hemorrhoids were found during retroflexion and were small. Impression: - One 4 mm polyp in the sigmoid colon. Resected and retrieved. - One 10 mm polyp in the sigmoid colon. Resected and retrieved. - Internal hemorrhoids. Recommendation: - Await pathology results. - If the pathology report reveals adenomatous tissue, then repeat the colonoscopy for surveillance in 3 years. Otherwise in 5 years. - Return to primary care physician. Procedure Code(s): --- Professional --- 64275, PT, Colonoscopy, flexible, proximal to splenic flexure; with removal of tumor(s), polyp(s), or other lesion(s) by snare technique Diagnosis Code(s): --- Professional --- V76.51, Special screening for malignant neoplasms of colon 211.3, Benign neoplasm of colon 455.0, Internal hemorrhoids without mention of complication CPT copyright 2013 [employer]. All rights reserved. The codes documented in this report are preliminary and upon hot die press feeder review may be revised to meet current compliance requirements. Attending Participation: Getachew Higgins MD 10/11/2014 12:03 PM This report has been signed electronically. Number of Addenda: 0 Note Initiated On: 10/11/2014 11:23 AM Getachew Higgins MD DIGESTIVE CARE Final Resu lt [facility]) [place], [place] * (ABNORMAL) LIPID PANEL AND DIRECT LDL(IF NEEDED) (10/10/2014 9:15 AM MELT HELPER) Hours Fasting 12 hours [facility] Cholesterol 214(H) 0 - 199 mg/dl [facility] Triglyceride 86 0 - 149 mg/dl [facility] HDL 58 >40 mg/dl [facility] LDL, Calc. 139(H) 0 - 129 mg/dl [facility] Non HDL Chol, Calc 156 mg/dl [facility] 10/10/2014 9:15 AM MELT HELPER 10/10/2014 9:28 AM MELT HELPER Narrative [facility] - 10/10/2014 12:13 PM MELT HELPER Performed at [facility], [address] [place] [id number] [place] Ayman Ali MD LAB_1 Final Result [facility] [employer] [phone] from Last 3 Months or Most Recently Relevant to Health Maintenance Advance Directives * Full Code (Latest Code Status on File) Date Activated Date Inactivated Comments 11/09/2014 7:23 AM 11/09/2014 3:07 PM Care Teams Parking Officer Relationship Specialty Start Date End Date Iván Prajapati MD [address] [place] [address] PCP - General Internal Medicine 01/11/14
--- OUTSIDE RECORDS SUMMARY | 2025-04-07 16:21 | XMS_ITS | Encounter Summary ---
Author Organization [facility] Address [address] [place] [address] Care Team Providers Care Chairperson Anesthesiology Name Role Phone Iván Prajapati MD Primary Care Provider [phone] Encounter Details Date Type Department Care Team (Late st Contact Info) Description 10/16/2014 Consent for Procedure/Treatme nt [facility] INFORMED [...] on filedocumented in this encounter Care Teams Chairperson Anesthesiology Relationship Specialty Start Date End Date Iván Prajapati MD [address] [place] [address] PCP - General Internal Medicine 01/11/14 documented as of this encounter
--- OUTSIDE RECORDS SUMMARY | 2025-04-07 16:21 | XMS_ITS | Encounter Summary ---
Author Organization [facility] Address [address] [place] [address] Care Team Providers Care Sumo Wrestler Name Role Phone Iván Prajapati MD Primary Care Provider [phone] Encounter Details Date Type Department Care Team (Late st Contact Info) Description 10/11/2014 Consent for Procedure/Treatme nt [facility] INFORMED [...] on filedocumented in this encounter Care Teams Sumo Wrestler Relationship Specialty Start Date End Date Iván Prajapati MD [address] [place] [address] PCP - General Internal Medicine 01/11/14 documented as of this encounter
--- OUTSIDE RECORDS SUMMARY | 2025-04-07 16:21 | XMS_ITS | Encounter Summary ---
Author Organization [facility] Address [address] [place] [address] Care Team Providers Care Jackscrew Worker Name Role Phone Iván Prajapati MD Primary Care Provider [phone] Encounter Details Date Type Department Care Team (Latest Contact Info) Description 02/08/1998 Orders Only Jose Carlos Norman DDS Social [...] on filedocumented in this encounter Care Teams Jackscrew Worker Relationship Specialty Start Date End Date Iván Prajapati MD [address] [place] [address] PCP - General Internal Medicine 01/11/14 documented as of this encounter
--- NOTE | 2025-04-07 16:43 | ED.GENADULT ---
HPI - General Adult General Chief complaint: Alcohol/Intoxication Stated complaint: ETOH, Intoxication Time Seen by Provider: 04/07/25 16:20 Source: patient Limitations: no limitations History of Present Illness HPI narrative: Patient is a 64-year-old male who was consuming alcohol today, states that he had 2 beers and a bloody Allyson, and then felt ?dehydrated. He states that he was walking outside and felt like he was going to pass out. He walked over to a grassy area and laid down. He denies losing consciousness. He denies hitting his head. He denies headache or neck pain. He states that he remembers everything that happened before, during this episode and afterwards. He states that this has happened to him many times before. He states that he has neuropathy and sometimes walking around is difficult for him. He tells me that he drinks alcohol 3 out of every 5 days. He states that he has had treatment for alcohol use disorder in the past and that ?does not work?. He is not interested in getting help at this time. Patient lives independently. He states that he often times misses his doctor's appointments. He currently denies any headache, chest pain, abdominal pain. He denies any recent illness. States that he was not sure whether or not he felt short of breath before he passed out. He does not currently feel short of breath. Related Data Previous Rx's ?Medication ?Instructions ?Recorded atorvastatin 20 mg tablet 20 mg PO QPM #90 tabs 08/27/22 Held on 07/21/24. Instructions: Pt not taking Allergies Allergy/AdvReac Type Severity Reaction Status Date / Time aspirin Allergy Intermediate swelling Verified 04/07/25 17:55 indomethacin Allergy Mild Unknown Verified 04/07/25 17:55 ibuprofen Allergy Verified 04/07/25 17:55 Review of Systems Status of ROS: Reports: 10 or more systems reviewed and unremarkable except as noted in History and below [facility] Medical History Osteomyelitis ?M86.9 - Osteomyelitis, unspecified (ICD-10) Alcohol abuse ?F10.10 - Alcohol abuse, uncomplicated (ICD-10) Bilateral foot pain ?M79.671 - Pain in right foot (ICD-10) ?M79.672 - Pain in left foot (ICD-10) Peripheral neuropathy ?G62.9 - Polyneuropathy, unspecified (ICD-10) Hyperlipidemia ?E78.5 - Hyperlipidemia, unspecified (ICD-10) Seasonal allergic rhinitis ?J30.2 - Other seasonal allergic rhinitis (ICD-10) Hyperkeratosis of sole ?L85.9 - Epidermal thickening, unspecified (ICD-10) Compression fracture of twelfth thoracic vertebra ?S22.080A - Wedge compression fracture of T11-T12 vertebra, initial encounter for closed fracture (ICD-10) Surgical History History of amputation of great toe ?Z89.419 - Acquired absence of unspecified great toe (ICD-10) History of right inguinal hernia repair ?Z98.890 - Other specified postprocedural states (ICD-10) ?Z87.19 - Personal history of other diseases of the digestive system (ICD-10) History of umbilical hernia repair ?Z98.890 - Other specified postprocedural states (ICD-10) ?Z87.19 - Personal history of other diseases of the digestive system (ICD-10) Family History Other Diabetes Social History Smoking Status: Never smoker Do you use any of these nicotine containing products: None Second hand tobacco smoke exposure: No How often do you have a drink containing alcohol: 2-3 times a week How many standard drinks containing alcohol do you have on a typical day: 10 or more How often do you have six or more drinks on one occasion: Daily or almost daily AUDIT-C Alcohol total score: 11 Non-prescribed substance use: denies use service: No Exam Narrative: Exam Narrative: Well-nourished well-developed patient in no acute distress. Clearly intoxicated. Cooperative, conversant. Speech is slurred. Alert and oriented x3. Answers questions appropriately. Mood and affect are appropriate. Thoughts are goal oriented and rational. No tangential or magical thinking noted. Patient speaks in full sentences without needing to catch his breath. However, patient presents hypoxic with an oxygen saturation 84% on room air. HEENT: Normocephalic atraumatic. Pupils are equally round reactive to light. Extraocular muscles are intact. Conjunctivae are moist without any icterus noted. Dry mucous membranes. Posterior pharynx is normal. Neck is soft. No trauma noted to the scalp or the face. Cardiovascular: Heart is regular rate and rhythm S1 and S2 are present without any murmurs. Lungs: Clear to auscultation bilaterally no wheezes rhonchi or rales are appreciated. Patient takes deep breaths without any discomfort. Abdomen: Soft and nontender nondistended with normal bowel sounds. Extremities: Bilateral lower extremities are without edema. Patient has extremely terrible hygiene of both feet. It appears that they have not been cleaned in weeks. They have a very strong odor. The skin is intact however. There is no areas of erythema or infection noted. He does have a an amputation of the distal phalanx of the 1st toe on the right foot. Nails on other toes are overgrown and curved. There is dirt and probable feces between all of the toes. Skin: Well perfused. Const: Vital Signs, click to edit/add: Vital Signs - 24 hr 04/07/25 16:26 04/07/25 16:30 04/07/25 16:30 Temperature 97.7 F Pulse Rate 84 Pulse Rate [Pulse Oximeter] 83 Respiratory Rate 12 Blood Pressure 105/67 Blood Pressure [Le ft Upper Arm] 105/67 Pulse Oximetry 84 L 93 85 L Oxygen Delivery Me thod Room Air Nasal Cannula Oxygen Flow Rate 3 04/07/25 16:31 04/07/25 16:45 04/07/25 16:56 Temperature Pulse Rate 83 80 Pulse Rate [Pulse Oximeter] Respiratory Rate Blood Pressure Blood Pressure [Le ft Upper Arm] Pulse Oximetry 91 94 92 Oxygen Delivery Me thod Oxygen Flow Rate 04/07/25 17:00 04/07/25 17:14 04/07/25 17:15 Temperature Pulse Rate 94 86 85 Pulse Rate [Pulse Oximeter] Respiratory Rate 11 L 16 9 L Blood Pressure 130/91 H Blood Pressure [Le ft Upper Arm] Pulse Oximetry 91 94 94 Oxygen Delivery Me thod Oxygen Flow Rate 04/07/25 17:30 04/07/25 17:45 04/07/25 18:08 Temperature Pulse Rate 79 73 66 Pulse Rate [Pulse Oximeter] Respiratory Rate 13 17 15 Blood Pressure Blood Pressure [Le ft Upper Arm] Pulse Oximetry 97 98 98 Oxygen Delivery Me thod Oxygen Flow Rate 04/07/25 18:09 04/07/25 18:12 04/07/25 18:15 Temperature Pulse Rate 68 64 65 Pulse Rate [Pulse Oximeter] Respiratory Rate 13 12 16 Blood Pressure 121/81 120/78 Blood Pressure [Le ft Upper Arm] Pulse Oximetry 99 98 96 Oxygen Delivery Me thod Oxygen Flow Rate 04/07/25 18:45 04/07/25 19:00 04/07/25 19:02 Temperature Pulse Rate 68 75 72 Pulse Rate [Pulse Oximeter] Respiratory Rate 16 16 Blood Pressure 115/76 Blood Pressure [Le ft Upper Arm] Pulse Oximetry 95 95 94 Oxygen Delivery Me thod Nasal Cannula Oxygen Flow Rate 1 04/07/25 19:03 04/07/25 19:15 04/07/25 19:30 Temperature Pulse Rate 69 69 66 Pulse Rate [Pulse Oximeter] Respiratory Rate 15 16 Blood Pressure Blood Pressure [Le ft Upper Arm] Pulse Oximetry 94 94 90 Oxygen Delivery Me thod Oxygen Flow Rate 04/07/25 19:45 04/07/25 20:00 04/07/25 20:02 Temperature Pulse Rate 66 68 66 Pulse Rate [Pulse Oximeter] Respiratory Rate 15 15 14 Blood Pressure 115/77 Blood Pressure [Le ft Upper Arm] Pulse Oximetry 92 91 89 Oxygen Delivery Me thod Oxygen Flow Rate 04/07/25 20:03 04/07/25 20:15 04/07/25 20:30 Temperature Pulse Rate 66 62 77 Pulse Rate [Pulse Oximeter] Respiratory Rate 15 12 36 H Blood Pressure Blood Pressure [Le ft Upper Arm] Pulse Oximetry 90 96 97 Oxygen Delivery Me thod Oxygen Flow Rate 04/07/25 20:45 04/07/25 21:00 04/07/25 21:02 Temperature Pulse Rate 67 Pulse Rate [Pulse Oximeter] Respiratory Rate 21 14 13 Blood Pressure 119/84 Blood Pressure [Le ft Upper Arm] Pulse Oximetry 96 Oxygen Delivery Me thod Oxygen Flow Rate 04/07/25 21:15 04/07/25 21:30 04/07/25 22:00 Temperature Pulse Rate Pulse Rate [Pulse Oximeter] Respiratory Rate 14 14 15 Blood Pressure Blood Pressure [Le ft Upper Arm] Pulse Oximetry Oxygen Delivery Me thod Oxygen Flow Rate 04/07/25 22:02 04/07/25 22:03 04/07/25 22:15 Temperature Pulse Rate 68 Pulse Rate [Pulse Oximeter] Respiratory Rate 15 15 14 Blood Pressure 123/88 Blood Pressure [Le ft Upper Arm] Pulse Oximetry 98 98 Oxygen Delivery Me thod Nasal Cannula Oxygen Flow Rate 2 04/07/25 23:15 04/07/25 23:30 04/07/25 23:45 Temperature Pulse Rate 64 61 67 Pulse Rate [Pulse Oximeter] Respiratory Rate Blood Pressure Blood Pressure [Le ft Upper Arm] Pulse Oximetry 97 Oxygen Delivery Me thod Oxygen Flow Rate 04/07/25 23:46 Temperature Pulse Rate 61 Pulse Rate [Pulse Oximeter] Respiratory Rate 16 Blood Pressure 118/81 Blood Pressure [Le ft Upper Arm] Pulse Oximetry 94 Oxygen Delivery Me thod Room Air Oxygen Flow Rate Course Course ED Course: IV is established and patient is given a L of normal saline. Patient is placed on oxygen. Feet are cleaned. EKG, read by me, shows normal sinus rhythm with a pulse of 82. Labs were drawn: CBC shows a hemoglobin of 11.9, WBC of 4.45 which appear to be around his baseline. Platelet count is 170. Chemistries are unremarkable. Lactate is elevated at 2.5. AST is slightly elevated at 46, ALT is 37. Total protein slightly elevated. Blood alcohol is 0.34. D-dimer is elevated at 2.28. Because of this and his presenting hypoxia we did go ahead and proceed with a chest CT PE protocol. This was unremarkable. UA unremarkable. Urine drug screen is negative. During his stay in the ER we were able to wean him off the oxygen. Patient does live by himself and so he spent approximately 8 hours in the ER detoxing. After 7 hours he did come down to a blood alcohol of 0.23. He was eating and drinking fluids, ambulating without assistance, having normal conversations. We discussed that it seems like he is drinking much more often the only 3 out of every 5 days the patient does admit that he drinks almost daily. Denies any history of seizure disorder, significant withdrawals or DTs. Although admittedly has not stop drinking for quite some time. Does not wish to stop drinking at this time. Understands the risk of continued drinking. At this time patient is clinically stable to be discharged home. Vital Signs Vital signs: Initial Vital Signs Temperature 97.7 F 04/07/25 16:26 Temperature Source Temporal Artery Scan 04/07/25 16:26 Pulse Rate 83 04/07/25 16:26 Respiratory Rate 12 04/07/25 16:26 Blood Pressure 105/67 04/07/25 16:26 Blood Pressure Mean 79 04/07/25 16:26 Pulse Oximetry 84 L 04/07/25 16:26 Oxygen Delivery Method Room Air 04/07/25 16:26 Vital Signs Temperature 97.7 F 04/07/25 16:26 Pulse Rate 83 04/07/25 16:26 Respiratory Rate 12 04/07/25 16:26 Blood Pressure 105/67 04/07/25 16:26 Pulse Oximetry 84 L 04/07/25 16:26 Oxygen Delivery Method Room Air 04/07/25 16:26 Temperature 97.7 F 04/07/25 16:26 Pulse Rate 61 04/07/25 23:46 Respiratory Rate 16 04/07/25 23:46 Blood Pressure 118/81 04/07/25 23:46 Pulse Oximetry 94 04/07/25 23:46 Oxygen Delivery Method Room Air 04/07/25 23:46 Oxygen Flow Rate 2 04/07/25 22:02 Medications Administered Medications: Discontinued Medications Generic Name Dose Route Start Last Admin Trade Name Freq PRN Reason Stop Dose Admin Sodium Chloride 1,000 mls @ 1,000 mls/hr 04/07/25 16:45 04/07/25 18:18 0.9 % Sodium Chloride 1000 Ml IV 04/07/25 17:44 Infused .Q1H KARI Infusion Medical Decision Making MDM Narrative Medical decision making narrative: Alcohol intoxication in patient with chronic alcohol use disorder. Treatment options offered and declined. Patient clinically stable for discharge. Lab Data Lab results reviewed: Yes I reviewed the patient's lab results Labs: Lab Results 04/07/25 04/07/25 04/07/25 Range/Units 17:03 17:55 18:30 WBC 4.45 L (4.50-11.00) K/uL RBC 3.47 L (4.30-5.90) m/uL Hgb 11.9 L (13.5-17.5) gm/dL Hct 36.0 L (37.0-53.0) % MCV 104 H (80-100) fL MCH 34 (26-34) pg MCHC 33 (32-36) gm/dL RDW Coeff of Guerita 13.0 (11.5-15.5) % Plt Count 170 (140-440) K/uL Neut % (Auto) 77.6 H (42.0-72.0) % Lymph % (Auto) 13.3 L (20-44) % [place] % (Auto) 6.3 (0.0-11.0) % Eos % (Auto) 2.0 (0.0-7.0) % Baso % (Auto) 0.4 (0.0-3.0) % Neut # (Auto) 3.50 (1.7-7.0) K/uL Lymph # (Auto) 0.60 L (0.90-2.90) K/uL [place] # (Auto) 0.30 (0.00-0.90) K/UL Eos # (Auto) 0.10 (0.00-0.50) K/uL Baso # (Auto) 0.00 (0.00-0.30) K/uL Abs Immat Gran (auto) 0.00 (0.00-0.30) K/uL Imm/Tot Granulo (auto) 0.4 % D-Dimer Quant (PE/DVT) 2.28 H (0.00-0.50) ug/ml Sodium 146 (135-149) mmol/L Potassium 4.5 (3.6-5.1) mmol/L Chloride 105 (96-114) mmol/L Carbon Dioxide 25 (20-32) mmol/L Anion Gap 16 H (7-15) mEq/L BUN 11 (7-30) mg/dL Creatinine 0.7 (0.5-1.5) mg/dL Estimated Creat Clear 85.63 Estimated GFR 102 ml/min Glucose 114 (60-115) mg/dL Lactate 2.5 H (0.5-1.9) mmol/L Calcium 8.9 (8.4-10.6) mg/dL Magnesium 1.9 (1.5-2.6) mg/dL Total Bilirubin 0.8 (0.1-1.5) mg/dL Direct Bilirubin 0.4 (0.0-0.5) mg/dL AST 46 H (12-35) U/L ALT 37 (4-50) U/L Alkaline Phosphatase 70 (40-150) U/L Troponin I 0.02 (0.01-0.04) ng/mL C-Reactive Protein < 0.5 L (0.5-1.0) mg/dL Total Protein 9.1 H (6.0-8.3) g/dL Albumin 4.9 (3.3-5.0) g/dL Urine Color Cancelled Yellow Urine Appearance Cancelled Clear Urine pH Cancelled 7.0 Ur Specific [place] Cancelled 1.015 Urine Protein Cancelled 1+ A Urine Glucose (UA) Cancelled Negative Urine Ketones Cancelled Negative Urine Blood Cancelled Negative Urine Nitrite Cancelled Negative Urine Bilirubin Cancelled Negative Urine Urobilinogen Cancelled 0.2 Ur Leukocyte Esterase Cancelled Negative Urine RBC Cancelled 0-2 Urine WBC Cancelled 0-2 Urine WBC Clumps Cancelled Ur Squamous Epith Cells Cancelled None [place] Biurate Crystals Cancelled Calcium Carbonate Cryst Cancelled Calcium Phosphate Cryst Cancelled Calcium Oxalate Crystal Cancelled Cystine Crystals Cancelled Uric Acid Crystals Cancelled Triple Phos Crystals Cancelled Sulfur Crystals Cancelled Cholesterol Crystals Cancelled Tyrosine Crystals Cancelled Hippuric Acid Crystals Cancelled Amorphous Sediment Cancelled Other Sediment Cancelled Urine Bacteria Cancelled None Fatty Casts Cancelled Hyaline Casts Cancelled Fine Granular Casts Cancelled Coarse Granular Casts Cancelled Waxy Casts Cancelled RBC Casts Cancelled WBC Casts Cancelled Other Casts Cancelled Urine Starch Cancelled Urine Mucus Cancelled Urine Trichomonas Cancelled Urine Yeast Cancelled Salicylates < 1.0 L (1.0-10) mg/dL Urine Opiates Screen Cancelled Negative Ur Buprenorphine Scrn Cancelled Ur Oxycodone Screen Cancelled Negative Urine Methadone Screen Cancelled Negative Acetaminophen < 10.0 (10.0-30.0) ug/mL Ur Barbiturates Screen Cancelled Negative U Tricyclic Antidepress Cancelled Negative Ur Phencyclidine Scrn Cancelled Negative Ur Amphetamines Screen Cancelled Negative U Methamphetamines Scrn Cancelled Negative U Benzodiazepines Scrn Cancelled Negative Urine Cocaine Screen Cancelled Negative U Marijuana (THC) Screen Cancelled Negative Ur Drug Screen Comment Cancelled See Note Ethyl Alcohol 0.34 H* (0.01-0.03) % 04/07/25 Range/Units 22:39 WBC (4.50-11.00) K/uL RBC (4.30-5.90) m/uL Hgb (13.5-17.5) gm/dL Hct (37.0-53.0) % MCV (80-100) fL MCH (26-34) pg MCHC (32-36) gm/dL RDW Coeff of Guerita (11.5-15.5) % Plt Count (140-440) K/uL Neut % (Auto) (42.0-72.0) % Lymph % (Auto) (20-44) % [place] % (Auto) (0.0-11.0) % Eos % (Auto) (0.0-7.0) % Baso % (Auto) (0.0-3.0) % Neut # (Auto) (1.7-7.0) K/uL Lymph # (Auto) (0.90-2.90) K/uL [place] # (Auto) (0.00-0.90) K/UL Eos # (Auto) (0.00-0.50) K/uL Baso # (Auto) (0.00-0.30) K/uL Abs Immat Gran (auto) (0.00-0.30) K/uL Imm/Tot Granulo (auto) % D-Dimer Quant (PE/DVT) (0.00-0.50) ug/ml Sodium (135-149) mmol/L Potassium (3.6-5.1) mmol/L Chloride (96-114) mmol/L Carbon Dioxide (20-32) mmol/L Anion Gap (7-15) mEq/L BUN (7-30) mg/dL Creatinine (0.5-1.5) mg/dL Estimated Creat Clear Estimated GFR ml/min Glucose (60-115) mg/dL Lactate (0.5-1.9) mmol/L Calcium (8.4-10.6) mg/dL Magnesium (1.5-2.6) mg/dL Total Bilirubin (0.1-1.5) mg/dL Direct Bilirubin (0.0-0.5) mg/dL AST (12-35) U/L ALT (4-50) U/L Alkaline Phosphatase (40-150) U/L Troponin I (0.01-0.04) ng/mL C-Reactive Protein (0.5-1.0) mg/dL Total Protein (6.0-8.3) g/dL Albumin (3.3-5.0) g/dL Urine Color Urine Appearance Urine pH Ur Specific [place] Urine Protein Urine Glucose (UA) Urine Ketones Urine Blood Urine Nitrite Urine Bilirubin Urine Urobilinogen Ur Leukocyte Esterase Urine RBC Urine WBC Urine WBC Clumps Ur Squamous Epith Cells Dank Biurate Crystals Calcium Carbonate Cryst Calcium Phosphate Cryst Calcium Oxalate Crystal Cystine Crystals Uric Acid Crystals Triple Phos Crystals Sulfur Crystals Cholesterol Crystals Tyrosine Crystals Hippuric Acid Crystals Amorphous Sediment Other Sediment Urine Bacteria Fatty Casts Hyaline Casts Fine Granular Casts Coarse Granular Casts Waxy Casts RBC Casts WBC Casts Other Casts Urine Starch Urine Mucus Urine Trichomonas Urine Yeast Salicylates (1.0-10) mg/dL Urine Opiates Screen Ur Buprenorphine Scrn Ur Oxycodone Screen Urine Methadone Screen Acetaminophen (10.0-30.0) ug/mL Ur Barbiturates Screen U Tricyclic Antidepress Ur Phencyclidine Scrn Ur Amphetamines Screen U Methamphetamines Scrn U Benzodiazepines Scrn Urine Cocaine Screen U Marijuana (THC) Screen Ur Drug Screen Comment Ethyl Alcohol 0.23 H (0.01-0.03) % Imaging Data CT scan - chest: Attestation: I have reviewed the pertinent imaging results. Radiologist's impression: TECHNIQUE: CT chest pulmonary angiogram acquired with IV contrast. Approximately 95 cc of Isovue 370 contrast was administered intravenously. Multi planer/3D MIP reformats were created. COMPARISON: None FINDINGS: The heart is normal in size. There is no bowing of the intraventricular septum. There is an aberrant right subclavian artery. The main pulmonary artery is normal in caliber. There are no filling defects within the pulmonary arteries to suggest a pulmonary embolus. There is no suspicious mediastinal, hilar or axillary adenopathy. Minimal dependent atelectasis. The lungs are otherwise clear. Negative for focal consolidation, pleural effusion or pneumothorax. The visualized portions of the upper abdomen are unremarkable. Compression deformity of T12 likely chronic. IMPRESSION: 1. Negative for pulmonary embolus. 2. No acute abnormality in the chest to explain symptoms. ECG Data Attestation: I personally reviewed and interpreted this ECG as follows: Discharge Plan Discharge Clinical Impression: Alcohol intoxication in active alcoholic Patient Disposition: Home, Self-Care Condition: Stable Additional Instructions: Recommend treatment for alcohol use disorder. Prescriptions: No Action atorvastatin 20 mg tablet 20 mg PO QPM Qty: 90 3RF Follow Up/Referrals: Teddy Parry MD [Primary Care Provider, Family Practice] Stand Alone Forms: [employer] Info Instructions
[2025-04-07] MEDS: 0.9 % SODIUM CHLORIDE 1000 ml 1,000 ML IV (16:56)
[2025-04-07 17:08] LABS: Lactate* 2.5 mmol/L (0.5-1.9)
[2025-04-07 17:09] LABS: Basophils Percent Auto 0.4 % (0.0-3.0); Hemoglobin* 11.9 gm/dL (13.5-17.5); Immature Granulocytes Pct Auto 0.4 %; Lymphocytes Percent Auto 13.3 % (20-44); Mean Corpuscular HGB Conc 33 gm/dL (32-36); Mean Corpuscular Hemoglobin 34 pg (26-34); Mean Corpuscular Volume 104 fL (80-100); Monocytes Percent Auto 6.3 % (0.0-11.0); Neutrophils Percent Auto 77.6 % (42.0-72.0); Platelet Count* 170 K/uL (140-440); Red Blood Count 3.47 m/uL (4.30-5.90); White Blood Count* 4.45 K/uL (4.50-11.00)
[2025-04-07 17:12] LABS: Slide Review Reflex No
[2025-04-07 17:25] LABS: Albumin* 4.9 g/dL (3.3-5.0); Chloride* 105 mmol/L (96-114); Sodium* 146 mmol/L (135-149)
[2025-04-07 17:26] LABS: Potassium* 4.5 mmol/L (3.6-5.1)
[2025-04-07 17:28] LABS: Blood Urea Nitrogen* 11 mg/dL (7-30); Creatinine* 0.7 mg/dL (0.5-1.5); Est. Creatinine Clearance* 85.63; Estimated Glomerular Filt Rate 102 ml/min
[2025-04-07 17:29] LABS: Alanine Aminotransferase* 37 U/L (4-50); Alkaline Phosphatase* 70 U/L (40-150); Anion Gap 16 mEq/L (7-15); Aspartate Amino Transferase* 46 U/L (12-35); Bilirubin Direct* 0.4 mg/dL (0.0-0.5); Bilirubin Total* 0.8 mg/dL (0.1-1.5); Calcium* 8.9 mg/dL (8.4-10.6); Carbon Dioxide* 25 mmol/L (20-32); Glucose* 114 mg/dL (60-115); Magnesium* 1.9 mg/dL (1.5-2.6); Total Protein* 9.1 g/dL (6.0-8.3)
[2025-04-07 17:33] LABS: D Dimer Quantitative* 2.28 ug/ml (0.00-0.50)
[2025-04-07 17:34] LABS: Acetaminophen* < 10.0 ug/mL (10.0-30.0); C Reactive Protein* < 0.5 mg/dL (0.5-1.0)
[2025-04-07 17:39] LABS: Ethanol* 0.34 % (0.01-0.03)
[2025-04-07 17:40] LABS: Troponin I* 0.02 ng/mL (0.01-0.04)
--- NOTE | 2025-04-07 17:45 | CRLHL7_ITS ---
For Patients: As a result of the Century Cures Act, medical imaging exams and procedure reports are released immediately into your electronic medical record. You may view this report before your referring provider. If you have questions, please contact your health care provider. INDICATION: Shortness of breath, elevated D-dimer TECHNIQUE: CT chest pulmonary angiogram acquired with IV contrast. Approximately 95 cc of Isovue 370 contrast was administered intravenously. Multi planer/3D MIP reformats were created. COMPARISON: None FINDINGS: The heart is normal in size. There is no bowing of the intraventricular septum. There is an aberrant right subclavian artery. The main pulmonary artery is normal in caliber. There are no filling defects within the pulmonary arteries to suggest a pulmonary embolus. There is no suspicious mediastinal, hilar or axillary adenopathy. Minimal dependent atelectasis. The lungs are otherwise clear. Negative for focal consolidation, pleural effusion or pneumothorax. The visualized portions of the upper abdomen are unremarkable. Compression deformity of T12 likely chronic. IMPRESSION: 1. Negative for pulmonary embolus. 2. No acute abnormality in the chest to explain symptoms. Dictated by Sunitha Dela Cruz MD @ 04/07/2025 7:31:07 PM Please note that all CT scans at this facility use dose modulation, iterative reconstruction, and/or weight-based dosing when appropriate to reduce radiation dose to as low as reasonably achievable. Dictated by: Sunitha Dela Cruz MD @ 04/07/2025 19:33:04 (Electronically Signed)
[2025-04-07 18:43] LABS: Appearance Urine Clear (Clear); Bilirubin Urine Negative (Negative); Blood Urine Negative (Negative); Color Urine Yellow (Yellow); Glucose Urine Negative (Negative); Ketones Urine Negative (Negative); Leukocyte Esterase Urine Negative (Negative); Nitrite Urine Negative (Negative); Protein Urine 1+ (Negative); Specific Gravity Urine 1.015 (1.000-1.030); Urobilinogen Urine 0.2 (0.2-1.0)
[2025-04-07 18:52] LABS: Amphetamine Screen Urine Negative (Negative); Barbiturate Screen Urine Negative (Negative); Benzodiazepines Screen Urine Negative (Negative); Cannabinoid Screen Urine Negative (Negative); Cocaine Screen Urine Negative (Negative); Methadone Screen Urine Negative (Negative); Methamphetamines Screen Urine Negative (Negative); Opiate Screen Urine Negative (Negative); Oxycodone Screen Urine Negative (Negative); Phencyclidine Screen Urine Negative (Negative); Tricyclic Antidepressant Urine Negative (Negative)
[2025-04-07 18:58] LABS: RBC Urine 0-2 (0-2); WBC Urine 0-2 (0-5)
[2025-04-07 19:23] LABS: Salicylate* < 1.0 mg/dL (1.0-10)
[2025-04-07 22:53] LABS: Ethanol* 0.23 % (0.01-0.03)
== END 2025-04-08 00:41 | disposition home or self-care (01) ==
PROVIDERS: Emergency Provider Family Medicine; PCP Family Medicine
DX: F10.129 Alcohol abuse with intoxication, unspecified (principal)
CPT/HCPCS: 36415; 71275; 80048; 80076; 80143; 80179; 80306; 81001; 82077; 83605; 83735; 84484; 85025; 85379; 86140; 87086; 93005; 94761; 99284; 99285; J7030; Q9967

== ENCOUNTER 2025-06-02 13:04 | Emergency (ER) | payer MEDICARE, OTHER, SELFPAY ==
[2025-06-02] VITALS (40 sets, daily range): BP systolic 108–126; BP diastolic 69–92; PULSE 55–86; RESP 18–20; TEMP 37.1; O2SAT 83–100
--- OUTSIDE RECORDS SUMMARY | 2025-06-02 13:06 | XMS_ITS | Clinical Summary ---
Author Organization [email or web address] Address [address] [place] [address] Care Team Providers Care Overlay Plastician Name Role Phone Iván Prajapati MD Primary Care Provider [phone] Source Comments You are receiving this document [...] for each transition of care or referral. [email or web address] Allergies Active Allergy Reactions Criticality Noted Date [...] 96.2 kg (212 lb) 11/09/2014 7:20 AM FAMILY RESOURCE COORDINATOR Height 188 cm (6' 2) 11/09/2014 7:20 AM FAMILY RESOURCE COORDINATOR Body Mass Index 27.22 11/09/2014 7:20 AM FAMILY RESOURCE COORDINATOR Plan of Treatment Health Maintenance Due Date [...] - 2023-2 5 season) 2024 Influenza Vaccine (#1) 2025 09/12/2014 RSV Vaccine (1 - 1-dose [...] Diagnosis Comments COLONOSCOPY Routine 10/11/2014 11:23 AM FAMILY RESOURCE COORDINATOR Screen for colon cancer LIPID PANEL & DIRECT LDL (IF NEEDED) Routine 10/10/2014 9:15 AM FAMILY RESOURCE COORDINATOR Lipid screening from Last 3 Months or Most Recently Relevant to Health Maintenance Results * COLONOSCOPY [[id number]] (10/11/2014 11:23 AM FAMILY RESOURCE COORDINATOR) 10/11/2014 11:2 3 AM FAMILY RESOURCE COORDINATOR Narrative [facility]) - 10/11/2014 12:04 PM FAMILY RESOURCE COORDINATOR Indications: Screening for colorectal malignant neoplasm Providers: [...] care physician. Procedure Code(s): --- Professional --- 80198, PT, Colonoscopy, flexible, proximal to splenic flexure; with removal of tumor(s), polyp(s), or other lesion(s) by snare technique Diagnosis Code(s): --- Professional --- V76.51, Special screening for malignant neoplasms of colon 211.3, Benign neoplasm of colon 455.0, Internal hemorrhoids without mention of complication CPT copyright 2013 [employer]. All rights reserved. The codes documented in this report are preliminary and upon french folding machine operator review may be revised to meet current [...] care physician. Procedure Code(s): --- Professional --- 35062, PT, Colonoscopy, flexible, proximal to splenic flexure; with removal of tumor(s), polyp(s), or other lesion(s) by snare technique Diagnosis Code(s): --- Professional --- V76.51, Special screening for malignant neoplasms of colon 211.3, Benign neoplasm of colon 455.0, Internal hemorrhoids without mention of complication CPT copyright 2013 [employer]. All rights reserved. The codes documented in this report are preliminary and upon french folding machine operator review may be revised to meet current compliance requirements. Attending Participation: Getachew Higgins MD 10/11/2014 12:03 PM This report has been signed electronically. Number of Addenda: 0 Note Initiated On: 10/11/2014 11:23 AM Getachew Higgins MD DIGESTIVE CARE Final Resu lt [facility] ([facility]) [place], [place] * (ABNORMAL) LIPID PANEL AND DIRECT LDL(IF NEEDED) (10/10/2014 9:15 AM FAMILY RESOURCE COORDINATOR) Hours Fasting 12 hours [facility] Cholesterol 214(H) 0 - 199 mg/dl [facility] Triglyceride 86 0 - 149 mg/dl [facility] HDL 58 >40 mg/dl [facility] LDL, Calc. 139(H) 0 - 129 mg/dl [facility] Non HDL Chol, Calc 156 mg/dl [facility] 10/10/2014 9:15 AM FAMILY RESOURCE COORDINATOR 10/10/2014 9:28 AM FAMILY RESOURCE COORDINATOR Narrative [facility] - 10/10/2014 12:13 PM FAMILY RESOURCE COORDINATOR Performed at [facility], [address] [place] [id number] us Ayman Ali MD LAB_1 Final Result [facility] [employer] [phone] from Last 3 Months or Most Recently Relevant to Health Maintenance Advance Directives * Full Code (Latest Code Status on File) Date Activated Date Inactivated Comments 11/09/2014 7:23 AM 11/09/2014 3:07 PM Care Teams Overlay Plastician Relationship Specialty Start Date End Date Iván Prajapati MD [address] [place] [address] PCP - General Internal Medicine 01/11/14
--- OUTSIDE RECORDS SUMMARY | 2025-06-02 13:06 | XMS_ITS | Encounter Summary ---
Author Organization [facility] Address [address] [place] [address] Care Team Providers Care Cyber Engineer Name Role Phone Iván Prajapati MD Primary Care Provider [phone] Encounter Details Date Type Department Care Team [...] on filedocumented in this encounter Care Teams Cyber Engineer Relationship Specialty Start Date End Date Iván Prajapati MD [address] [place] [address] PCP - General Internal Medicine 01/11/14 documented as of this encounter
--- OUTSIDE RECORDS SUMMARY | 2025-06-02 13:06 | XMS_ITS | Encounter Summary ---
Author Organization [facility] Address [address] [place] [address] Care Team Providers Care Attraction Attendant Name Role Phone Iván Prajapati MD Primary Care Provider [phone] Encounter Details Date Type Department Care Team (Latest Contact Info) Description 03/11/1999 Orders Only Iván Prajapati MD [address] [place] [address] Social History Tobacco Use Types Packs/Day Years [...] on filedocumented in this encounter Care Teams Attraction Attendant Relationship Specialty Start Date End Date Iván Prajapati MD [address] [place] [address] PCP - General Internal Medicine 01/11/14 documented as of this encounter
--- OUTSIDE RECORDS SUMMARY | 2025-06-02 13:06 | XMS_ITS | Encounter Summary ---
Author Organization [facility] Address [address] [place] [address] Care Team Providers Care Construction Millwright Name Role Phone Iván Prajapati MD Primary Care Provider [phone] Encounter Details Date Type Department Care Team [...] on filedocumented in this encounter Care Teams Construction Millwright Relationship Specialty Start Date End Date Iván Prajapati MD [address] [place] [address] PCP - General Internal Medicine 01/11/14 documented as of this encounter
--- OUTSIDE RECORDS SUMMARY | 2025-06-02 13:06 | XMS_ITS | Encounter Summary ---
Author Organization [facility] Address [address] [place] [address] Care Team Providers Care Geriatric Personal Care Aide Name Role Phone Iván Prajapati MD Primary Care Provider [phone] Encounter Details Date Type Department Care Team [...] on filedocumented in this encounter Care Teams Geriatric Personal Care Aide Relationship Specialty Start Date End Date Iván Prajapati MD [address] [place] [address] PCP - General Internal Medicine 01/11/14 documented as of this encounter
--- OUTSIDE RECORDS SUMMARY | 2025-06-02 13:06 | XMS_ITS | Clinical Summary ---
Author Organization [facility] Address [address] [place] [id number] Care Team Providers Care Manager Performance Improvement Name Role Phone Nonstaff, Doctor Primary Care [...] SQUARED TOE POST OP SHOE, LARGE, REF: [phone] 2 Each 12/29/19 24 Active doxycycline (ADOXA) [...] on file Legal Sex Male 7:07 AM MANAGED CARE LIAISON Gender Identity Not on file Sexual Orientation Not on file Obstetrics History Last Filed Vital Signs Vital Sign Reading Time Taken Comments Blood Pressure 110/69 12/24/2023 12:49 PM MANAGED CARE LIAISON Pulse 110 01/19/2024 2:01 PM CDT Temperature 36.9 C (98.4 F) 01/19/2024 2:01 PM CDT Respiratory Rate 14 08/31/2022 10:10 AM CDT Oxygen Saturation 93% 01/19/2024 2:01 PM CDT Inhaled Oxygen Concentration - - Weight 94.2 kg (207 lb 9.6 oz) 12/24/2023 12:49 PM MANAGED CARE LIAISON Height 182.9 cm (6') 12/24/2023 12:49 PM MANAGED CARE LIAISON Body Mass Index 28.16 12/24/2023 12:49 PM MANAGED CARE LIAISON Plan of Treatment Upcoming Encounters Date Type Department Care Team (Late st Contact Info) Description 06/06/2025 9:45 AM CDT Office Visit [facility] [address] [place] [address] Suman Arvizu, [place] [address] [place] [address] Health Maintenance Due Date Last Done Comments [...] age 18+ 12/24/2024 12/24/2023, 12/22/2018 Influenza Vaccine (#1) 2025 , 07/17/2021, 12/14/2018, Additional history exists RSV vaccine for adults or (1 - 1-dose 75+ series) 2034 Hepatitis B series for 19+ Aged Out N o longer eligible based on patient's age to complete this topic Insurance [facility] Advance Directives * Full Code (Latest Code Status on File) Date Activated Date Inactivated Comments 08/31/2022 8:37 AM 08/31/2022 1:03 PM Question Answer Comments Code Status Discussion: Reviewed Preferences * Full Code Date Activated Date Inactivated Comments 12/13/2018 7:04 PM 12/19/2018 11:23 PM Care Teams Manager Performance Improvement Relationship Specialty Start Date End Date Nonstaff, Doctor NON STAFF DOCTOR PCP - General 12/13/18
--- OUTSIDE RECORDS SUMMARY | 2025-06-02 13:06 | XMS_ITS | Encounter Summary ---
Author Organization [facility] Address [address] [place] [address] Care Team Providers Care Avionics Systems Repairer Name Role Phone Iván Prajapati MD Primary Care Provider [phone] Encounter Details Date Type Department Care Team [...] on filedocumented in this encounter Care Teams Avionics Systems Repairer Relationship Specialty Start Date End Date Iván Prajapati MD [address] [place] [address] PCP - General Internal Medicine 01/11/14 documented as of this encounter
--- OUTSIDE RECORDS SUMMARY | 2025-06-02 13:06 | XMS_ITS | Encounter Summary ---
Author Organization [facility] Address [address] [place] [address] Care Team Providers Care Quantitative Strategy Analyst Name Role Phone Iván Prajapati MD Primary Care Provider [phone] Encounter Details Date Type Department Care Team [...] on filedocumented in this encounter Care Teams Quantitative Strategy Analyst Relationship Specialty Start Date End Date Iván Prajapati MD [address] [place] [address] PCP - General Internal Medicine 01/11/14 documented as of this encounter
--- OUTSIDE RECORDS SUMMARY | 2025-06-02 13:06 | XMS_ITS | Encounter Summary ---
Author Organization [facility] Address [address] [place] [address] Care Team Providers Care Clinical Director Name Role Phone Iván Prajapati MD Primary Care Provider [phone] Encounter Details Date Type Department Care Team [...] on filedocumented in this encounter Care Teams Clinical Director Relationship Specialty Start Date End Date Iván Prajapati MD [address] [place] [address] PCP - General Internal Medicine 01/11/14 documented as of this encounter
--- NOTE | 2025-06-02 13:12 | CRLHL7_ITS ---
For Patients: As a result of the Century Cures Act, medical imaging exams and procedure reports are released immediately into your electronic medical record. You may view this report before your referring provider. If you have questions, please contact your health care provider. INDICATION: Fall. TECHNIQUE: Noncontrast CT of the head with multiplanar reconstruction utilizing bone and soft tissue algorithms. COMPARISON: CT head dated 06/01/21. FINDINGS: No acute intracranial hemorrhage. Goldstein-white matter differentiation is preserved. The ventricles are unchanged in size. No abnormal extra-axial fluid collection is identified. The skull base and calvarium are intact. The globes are symmetric. The paranasal sinuses and mastoid air cells are predominantly clear. IMPRESSION: No acute intracranial abnormality. Please note that all CT scans at this facility use dose modulation, iterative reconstruction, and/or weight-based dosing when appropriate to reduce radiation dose to as low as reasonably achievable. Dictated by Arpan Galeano MD @ 06/02/2025 2:25:19 PM (Electronically Signed)
--- NOTE | 2025-06-02 13:12 | CRLHL7_ITS ---
For Patients: As a result of the Century Cures Act, medical imaging exams and procedure reports are released immediately into your electronic medical record. You may view this report before your referring provider. If you have questions, please contact your health care provider. Indication: Fall. Technique: Noncontrast CT of the cervical spine with multiplanar reconstruction. Comparison: CT cervical spine dated 06/01/2021. Findings: No acute fracture or traumatic subluxation. No lytic or blastic lesion. Straightening of the normal cervical lordosis. Posterior aspects of the vertebral bodies are aligned. Vertebral body heights are maintained. The prevertebral soft tissues are unremarkable. There is multilevel facet joint arthrosis. Evaluation of the individual levels demonstrates no high-grade spinal canal or neural foraminal stenosis. Impression: No acute fracture or traumatic subluxation. Please note that all CT scans at this facility use dose modulation, iterative reconstruction, and/or weight-based dosing when appropriate to reduce radiation dose to as low as reasonably achievable. Dictated by Arpan Galeano MD @ 06/02/2025 2:27:32 PM (Electronically Signed)
--- NOTE | 2025-06-02 13:14 | ED.GENADULT ---
HPI - General Adult General Chief complaint: Alcohol/Intoxication Stated complaint: fall, ETOH Time Seen by Provider: 06/02/25 13:05 History of Present Illness HPI narrative: Patient is a 64-year-old gentleman who admits to drinking several bloody Allyson's and few beers this morning was found sleeping on the sidewalk outside [employer]. No one witnessed any trauma on the patient has no skin abrasions. Patient was difficult to arouse at the scene but fortunately a bystander reported 3 bottles of water on him. Patient then awoke and the ambulance came. The patient states he was simply walking home from the [facility] to his apartment on [address]. Patient states he simply laid down and had been sleeping there as he is very tired. He complains of no discomfort but is clearly intoxicated. Related Data Previous Rx's ?Medication ?Instructions ?Recorded atorvastatin 20 mg tablet 20 mg PO QPM #90 tabs 08/27/22 Held on 07/21/24. Instructions: Pt not taking Allergies Allergy/AdvReac Type Severity Reaction Status Date / Time aspirin Allergy Intermediate swelling Verified 04/07/25 17:55 indomethacin Allergy Mild Unknown Verified 04/07/25 17:55 ibuprofen Allergy Verified 04/07/25 17:55 Review of Systems Status of ROS: Reports: 10 or more systems reviewed and unremarkable except as noted in History and below [facility] Medical History Osteomyelitis ?M86.9 - Osteomyelitis, unspecified (ICD-10) Alcohol abuse ?F10.10 - Alcohol abuse, uncomplicated (ICD-10) Bilateral foot pain ?M79.671 - Pain in right foot (ICD-10) ?M79.672 - Pain in left foot (ICD-10) Peripheral neuropathy ?G62.9 - Polyneuropathy, unspecified (ICD-10) Hyperlipidemia ?E78.5 - Hyperlipidemia, unspecified (ICD-10) Seasonal allergic rhinitis ?J30.2 - Other seasonal allergic rhinitis (ICD-10) Hyperkeratosis of sole ?L85.9 - Epidermal thickening, unspecified (ICD-10) Compression fracture of twelfth thoracic vertebra ?S22.080A - Wedge compression fracture of T11-T12 vertebra, initial encounter for closed fracture (ICD-10) Surgical History History of amputation of great toe ?Z89.419 - Acquired absence of unspecified great toe (ICD-10) History of right inguinal hernia repair ?Z98.890 - Other specified postprocedural states (ICD-10) ?Z87.19 - Personal history of other diseases of the digestive system (ICD-10) History of umbilical hernia repair ?Z98.890 - Other specified postprocedural states (ICD-10) ?Z87.19 - Personal history of other diseases of the digestive system (ICD-10) Family History Other Diabetes Social History Smoking Status: Never smoker Do you use any of these nicotine containing products: None Second hand tobacco smoke exposure: No How often do you have a drink containing alcohol: 2-3 times a week How many standard drinks containing alcohol do you have on a typical day: 10 or more How often do you have six or more drinks on one occasion: Daily or almost daily AUDIT-C Alcohol total score: 11 Non-prescribed substance use: denies use service: No Exam Narrative: Exam Narrative: EXAM GENERAL: Patient appears comfortable and well. EYES: No scleral icterus. ENT: Tympanic membranes and oropharynx normal. THYROID: no thyroid nodules or thyromegaly. LYMPH: No supraclavicular or cervical lymphadenopathy. SKIN: Visible skin seen during exam normal or with benign process only. EXT: No dependent lower extremity pedal edema. HEART: Regular rate and rhythm with no murmurs, rubs, or gallops. LUNGS: Clear to auscultation bilaterally with no crackles or wheezes. ABD: Soft, non tender, non distended. PSYCH: Good eye contact, patient is intoxicated. Back exam is normal Neck exam is normal No obvious signs of trauma. No bony tenderness. No other neurologic symptoms. Const: Vital Signs, click to edit/add: Vital Signs - 24 hr 06/02/25 13:12 06/02/25 13:38 06/02/25 13:39 Temperature 98.7 F Pulse Rate 72 68 Respiratory Rate 18 Blood Pressure 108/75 Blood Pressure [Le ft Upper Arm] 114/69 Pulse Oximetry 90 95 98 Oxygen Delivery Me thod Room Air 06/02/25 13:45 06/02/25 14:00 06/02/25 14:01 Temperature Pulse Rate 70 64 65 Respiratory Rate Blood Pressure 111/69 Blood Pressure [Le ft Upper Arm] Pulse Oximetry 100 100 100 Oxygen Delivery Me thod Course Course ED Course: Will proceed with CT of head neck ETOH CBC comprehensive metabolic panel lactate. Patient is resting comfortably. Vital Signs Vital signs: Initial Vital Signs Temperature 98.7 F 06/02/25 13:12 Temperature Source Temporal Artery Scan 06/02/25 13:12 Respiratory Rate 18 06/02/25 13:12 Blood Pressure 114/69 06/02/25 13:12 Blood Pressure Mean 84 06/02/25 13:12 Blood Pressure Position Sitting 06/02/25 13:12 Pulse Oximetry 90 06/02/25 13:12 Oxygen Delivery Method Room Air 06/02/25 13:12 Vital Signs Temperature 98.7 F 06/02/25 13:12 Respiratory Rate 18 06/02/25 13:12 Blood Pressure 114/69 06/02/25 13:12 Pulse Oximetry 90 06/02/25 13:12 Oxygen Delivery Method Room Air 06/02/25 13:12 Temperature 98.7 F 06/02/25 13:12 Pulse Rate 65 06/02/25 14:01 Respiratory Rate 18 06/02/25 13:12 Blood Pressure 111/69 06/02/25 14:01 Pulse Oximetry 100 06/02/25 14:01 Oxygen Delivery Method Room Air 06/02/25 13:12 Medical Decision Making MDM Narrative Medical decision making narrative: Patient is a 64 year old gentleman who was found sleeping by the [employer]. He was dosed with water and regained consciousness. He is brought into the EMS in his blood alcohol is 0.32. He is otherwise medically stable. He had a negative CT of his head and neck. He is unable to come up with a single name of a sober person that could come and get him. As result he will be resting here in the emergency room until he provides a responsible libertarian or he becomes not intoxicated any further. Patient is warned of the dangers of chronic alcohol consumption. Lab Data Labs: Lab Results 06/02/25 06/02/25 Range/Units 13:12 13:34 WBC 3.98 L (4.50-11.00) K/uL RBC 3.27 L (4.30-5.90) m/uL Hgb 11.2 L (13.5-17.5) gm/dL Hct 34.9 L (37.0-53.0) % MCV 107 H (80-100) fL MCH 34 (26-34) pg MCHC 32 (32-36) gm/dL RDW Coeff of Guerita 12.6 (11.5-15.5) % Plt Count 221 (140-440) K/uL Neut % (Auto) 62.0 (42.0-72.0) % Lymph % (Auto) 21.9 (20-44) % [place] % (Auto) 11.6 H (0.0-11.0) % Eos % (Auto) 2.5 (0.0-7.0) % Baso % (Auto) 1.5 (0.0-3.0) % Neut # (Auto) 2.50 (1.7-7.0) K/uL Lymph # (Auto) 0.90 (0.90-2.90) K/uL [place] # (Auto) 0.50 (0.00-0.90) K/UL Eos # (Auto) 0.10 (0.00-0.50) K/uL Baso # (Auto) 0.10 (0.00-0.30) K/uL Abs Immat Gran (auto) 0.00 (0.00-0.30) K/uL Imm/Tot Granulo (auto) 0.5 % Sodium 146 (135-149) mmol/L Potassium 4.2 (3.6-5.1) mmol/L Chloride 110 (96-114) mmol/L Carbon Dioxide 27 (20-32) mmol/L Anion Gap 9 (7-15) mEq/L BUN 15 (7-30) mg/dL Creatinine 0.7 (0.5-1.5) mg/dL Estimated GFR 102 ml/min Glucose 99 (60-115) mg/dL Lactate 1.6 (0.5-1.9) mmol/L Calcium 8.8 (8.4-10.6) mg/dL Total Bilirubin 0.3 (0.1-1.5) mg/dL AST 31 (12-35) U/L ALT 34 (4-50) U/L Alkaline Phosphatase 62 (40-150) U/L Total Protein 8.0 (6.0-8.3) g/dL Albumin 4.2 (3.3-5.0) g/dL Ur Drug Screen Comment See Note Ethyl Alcohol 0.32 H* (0.01-0.03) % Discharge Plan Discharge Clinical Impression: Alcohol intoxication Patient Disposition: Home, Self-Care Condition: Stable Instructions: Alcohol Intoxication (ED) Additional Instructions: Refrain from any further alcohol consumption Continue current medications Follow-up with your doctor as needed. Activity Level: No Restrictions Discharge Diet: Regular Prescriptions: No Action atorvastatin 20 mg tablet 20 mg PO QPM Qty: 90 3RF Follow Up/Referrals: Teddy Parry MD [Primary Care Provider, Family Practice] Stand Alone Forms: MyHealth Info Instructions
[2025-06-02 13:40] LABS: Lactate* 1.6 mmol/L (0.5-1.9)
[2025-06-02 13:41] LABS: Hematocrit 34.9 % (37.0-53.0); Hemoglobin* 11.2 gm/dL (13.5-17.5); Immature Granulocytes Pct Auto 0.5 %; Mean Corpuscular HGB Conc 32 gm/dL (32-36); Mean Corpuscular Hemoglobin 34 pg (26-34); Mean Corpuscular Volume 107 fL (80-100); RDW Coefficient of Variation % 12.6 % (11.5-15.5); Red Blood Count 3.27 m/uL (4.30-5.90); White Blood Count* 3.98 K/uL (4.50-11.00)
[2025-06-02 13:44] LABS: Immature Granulocytes Abs Auto 0.00 K/uL (0.00-0.30); Lymphocytes Absolute Auto 0.90 K/uL (0.90-2.90); Slide Review Reflex No
[2025-06-02 13:58] LABS: Albumin* 4.2 g/dL (3.3-5.0); Chloride* 110 mmol/L (96-114); Sodium* 146 mmol/L (135-149)
[2025-06-02 13:59] LABS: Potassium* 4.2 mmol/L (3.6-5.1)
[2025-06-02 14:01] LABS: Alanine Aminotransferase* 34 U/L (4-50); Alkaline Phosphatase* 62 U/L (40-150); Anion Gap 9 mEq/L (7-15); Aspartate Amino Transferase* 31 U/L (12-35); Bilirubin Total* 0.3 mg/dL (0.1-1.5); Blood Urea Nitrogen* 15 mg/dL (7-30); Carbon Dioxide* 27 mmol/L (20-32); Creatinine* 0.7 mg/dL (0.5-1.5); Estimated Glomerular Filt Rate 102 ml/min; Total Protein* 8.0 g/dL (6.0-8.3)
[2025-06-02 14:02] LABS: Calcium* 8.8 mg/dL (8.4-10.6); Glucose* 99 mg/dL (60-115)
[2025-06-02 14:10] LABS: Ethanol* 0.32 % (0.01-0.03)
[2025-06-02 14:35] LABS: Appearance Urine Clear (Clear)
[2025-06-02 14:45] LABS: Cannabinoid Screen Urine Negative (Negative); Methamphetamines Screen Urine Negative (Negative); Tricyclic Antidepressant Urine Negative (Negative)
== END 2025-06-02 20:24 | disposition home or self-care (01) ==
PROVIDERS: Emergency Provider Internal Medicine; PCP Family Medicine
DX: F10.129 Alcohol abuse with intoxication, unspecified (principal)
CPT/HCPCS: 36415; 70450; 72125; 80053; 80306; 81003; 82077; 83605; 85025; 99283; 99284

== ENCOUNTER 2025-06-02 13:43 | Outpatient (CLI) | payer MEDICARE, OTHER, SELFPAY | END 2025-06-02 13:44 | disposition home or self-care (01) | LOC: AMB 06-03 10:29 | PROVIDERS: PCP Family Medicine; Visit Provider Internal Medicine | DX: R41.82 Altered mental status, unspecified (principal) | CPT/HCPCS: A0425; A0427 ==

== ENCOUNTER 2025-06-21 09:56 | Outpatient (CLI) | payer MEDICARE, OTHER, SELFPAY | END 2025-06-21 09:57 | disposition home or self-care (01) | LOC: OP CLINIC 09:56 | PROVIDERS: PCP Family Medicine; Visit Provider Surgery | DX: Z53.09 Procedure and treatment not carried out because of other contraindication (principal) ==

== ENCOUNTER 2025-10-18 13:19 | Outpatient (CLI) | payer MEDICARE, OTHER, SELFPAY | END 2025-10-18 13:20 | disposition home or self-care (01) | LOC: AMB 10-22 16:30 | PROVIDERS: PCP Family Medicine; Visit Provider Family Medicine | DX: S39.92XA Unspecified injury of lower back, initial encounter (principal); W18.30XA Fall on same level, unspecified, initial encounter; Y92.9 Unspecified place or not applicable | CPT/HCPCS: A0425; A0433 ==

== ENCOUNTER 2025-10-18 13:53 | Emergency (ER) | payer MEDICARE, OTHER, SELFPAY ==
[2025-10-18 14:07] VITALS: BP 135/89; PULSE 77; RESP 17; TEMP 36.9; O2SAT 94
--- NOTE | 2025-10-18 14:22 | ED.GENADULT ---
HPI - General Adult General Chief complaint: Fall/Minor Trauma Stated complaint: fall Time Seen by Provider: 10/18/25 14:16 History of Present Illness HPI narrative: Patient getting off the bus, fell onto buttocks. Reports etoh use today. Hx neuropathy, weakness. Low back pain 05/17. 65-year-old man presenting to emergency department brought in by ambulance. Had been getting off a bus and fell at his buttocks. Apparently has been drinking with his friends. He blames this fall on peripheral neuropathy; I think this is related to alcohol use. Initially complaining of low back pain which he says has resolved. Is initially evaluated in the [facility] in busy emergency department. Denies hitting his head. There was no loss of consciousness. No neck pain. No vomiting today. At this point would be interested in getting something to needs in going home. Related Data Previous Rx's ?Medication ?Instructions ?Recorded atorvastatin 20 mg tablet 20 mg PO QPM #90 tabs 08/27/22 Held on 07/21/24. Instructions: Pt not taking gabapentin 300 mg capsule 300 mg PO BID #60 caps 06/12/25 peg 3350-electrolytes 236 240 ml PO Q10M #4,000 mL 06/12/25 gram-22.74 gram-6.74 gram-5.86 gram solution (Golytely) Allergies Allergy/AdvReac Type Severity Reaction Status Date / Time aspirin Allergy Intermediate swelling Verified 10/18/25 14:07 indomethacin Allergy Mild Unknown Verified 06/12/25 09:36 ibuprofen Allergy Verified 06/12/25 09:36 Review of Systems Status of ROS: Reports: 6 or more systems reviewed and unremarkable except as noted in History and below [facility] Medical History Osteomyelitis ?M86.9 - Osteomyelitis, unspecified (ICD-10) Alcohol abuse ?F10.10 - Alcohol abuse, uncomplicated (ICD-10) Bilateral foot pain ?M79.671 - Pain in right foot (ICD-10) ?M79.672 - Pain in left foot (ICD-10) Peripheral neuropathy ?G62.9 - Polyneuropathy, unspecified (ICD-10) Hyperlipidemia ?E78.5 - Hyperlipidemia, unspecified (ICD-10) Seasonal allergic rhinitis ?J30.2 - Other seasonal allergic rhinitis (ICD-10) Hyperkeratosis of sole ?L85.9 - Epidermal thickening, unspecified (ICD-10) Compression fracture of twelfth thoracic vertebra ?S22.080A - Wedge compression fracture of T11-T12 vertebra, initial encounter for closed fracture (ICD-10) Surgical History History of amputation of great toe ?Z89.419 - Acquired absence of unspecified great toe (ICD-10) History of right inguinal hernia repair ?Z98.890 - Other specified postprocedural states (ICD-10) ?Z87.19 - Personal history of other diseases of the digestive system (ICD-10) History of umbilical hernia repair ?Z98.890 - Other specified postprocedural states (ICD-10) ?Z87.19 - Personal history of other diseases of the digestive system (ICD-10) Family History Father Alcohol dependence Heart disease Mother Breast cancer Grandfather Lung cancer Grandmother Diabetes Social History (Updated 06/13/25 @ 07:27 by Jocelyn Kim~[facility], [facility]) What is your current living situation?: I presently have a place to live Problems where you live: no known problems In the past 12 months, utilities in danger of being shut off: no In past 12 months, lack of transportation kept you from medical appts, meetings, work, or getting things needed for daily living: yes In the past 12 mos, have been you worried that your food would run out before you had money to buy more?: sometimes true In the past 12 mos, the food you bought just didn't last and you didn't have money to buy more?: sometimes true Smoking Status: Never smoker Do you use any of these nicotine containing products: None Second hand tobacco smoke exposure: No How often do you have a drink containing alcohol: 2-3 times a week How many standard drinks containing alcohol do you have on a typical day: 10 or more How often do you have six or more drinks on one occasion: Daily or almost daily AUDIT-C Alcohol total score: 11 Non-prescribed substance use: denies use How often does anyone, including family, friends and others, physically hurt you: never How often does anyone, including family, friends and others, insult or talk down to you: never How often does anyone, including family, friends and others, threaten you with harm: never How often does anyone, including family, friends and others, scream or curse at you: never service: No Health Related Social Needs: food insecurity (Z59.41) and transportation insecurity (Z59.82) Exam Narrative: Exam Narrative: Pleasant. Does appear lightly intoxicated. Cranial nerves 2-12 to be intact. Moving all extremities without difficulty. Does appear little weak though. Head is atraumatic. Neck is supple nontender. Back without deformities nontender. Heart in regular rate and rhythm. Lungs are clear. Abdomen is soft nontender. Extremities without pain to palpation. There is on reexamination arm some dried blood on the anterior right landaver[place] but no laceration that appears to need any intervention. Const: Vital Signs, click to edit/add: Vital Signs - 24 hr 10/18/25 14:07 Temperature 98.5 F Pulse Rate [Pulse Oximeter] 77 Respiratory Rate 17 Blood Pressure [Ri ght Upper Arm] 135/89 Pulse Oximetry 94 Oxygen Delivery Me thod Room Air Documenting provider has reviewed patient's vital signs: yes Course Vital Signs Vital signs: Initial Vital Signs Temperature 98.5 F 10/18/25 14:07 Temperature Source Temporal Artery Scan 10/18/25 14:07 Pulse Rate 77 10/18/25 14:07 Respiratory Rate 17 10/18/25 14:07 Blood Pressure 135/89 10/18/25 14:07 Blood Pressure Mean 104 10/18/25 14:07 Blood Pressure Position Semi-Fowlers 10/18/25 14:07 Pulse Oximetry 94 10/18/25 14:07 Oxygen Delivery Method Room Air 10/18/25 14:07 Vital Signs Temperature 98.5 F 10/18/25 14:07 Pulse Rate 77 10/18/25 14:07 Respiratory Rate 17 10/18/25 14:07 Blood Pressure 135/89 10/18/25 14:07 Pulse Oximetry 94 10/18/25 14:07 Oxygen Delivery Method Room Air 10/18/25 14:07 Temperature 98.5 F 10/18/25 14:07 Pulse Rate 92 10/18/25 15:15 Respiratory Rate 16 10/18/25 15:15 Blood Pressure 143/76 H 10/18/25 15:15 Pulse Oximetry 94 10/18/25 15:15 Oxygen Delivery Method Room Air 10/18/25 15:15 Medical Decision Making MDM Narrative Medical decision making narrative: As he has requested is given some food and something to drink. Does not appear to need any imaging at this time. Is able to demonstrate ability to ambulate about the emergency department. I did discuss interest in detox or treatment or further evaluation with him but he would prefer just to go home. Assisted with transportation home. Medical Records Medical records reviewed: Yes I reviewed the patient's medical records Discharge Plan Discharge Clinical Impression: Fall, Peripheral neuropathy, Alcohol intoxication Patient Disposition: Home w/ Parent or Adult Condition: Improved Additional Instructions: Stay well hydrated with water. I am happy you are feeling better. Prescriptions: No Action atorvastatin 20 mg tablet 20 mg PO QPM Qty: 90 3RF peg 3350-electrolytes [Golytely] 236-22.74-6.74 -5.86 gram recon soln 240 ml PO Q10M Qty: 4000 0RF Rx Instructions: until fecal effluent is clear gabapentin 300 mg capsule 300 mg PO BID Qty: 60 0RF Rx Instructions: Take only nightly for 1st 3-7 days then start 2x/day. Follow Up/Referrals: Teddy Parry MD [Primary Care Provider, Family Practice] Stand Alone Forms: [employer] Info Instructions
[2025-10-18 15:15] VITALS: BP 143/76; PULSE 92; RESP 16; O2SAT 94
== END 2025-10-18 15:56 | disposition home or self-care (01) ==
PROVIDERS: Emergency Provider Family Medicine; PCP Family Medicine
DX: G62.9 Polyneuropathy, unspecified (principal); F10.129 Alcohol abuse with intoxication, unspecified; M54.50 Low back pain, unspecified; W19.XXXA Unspecified fall, initial encounter
CPT/HCPCS: 99283; 99284